=== PATIENT | female | born 1970 | race Caucasian/White ===

== ENCOUNTER 2018-06-06 18:28 | Observation (INO) | payer OTHER ==
[~2018-06-06] VITALS: Ht 162.6 cm; Wt 63.5 kg
[~2018-06-06 18:28] MED LIST: BISA5EC PO; CYCL10 PO; DICL25ER PO; DICLOFENAC; DOCU100 PO; HYDACE10B PO; HYDACE5 PO; HYDACE5325 PO; NAPR500 PO; PROM25 PO; PROM25S PR; RXOXYACE PO; SERT50 PO; VENL75
[2018-06-06 19:11] LABS: BASOPHILS ABSOLUTE AUTO 0.02 K/mm3 (0.00-0.23); BASOPHILS PERCENT AUTO 0 % (0-2); EOSINOPHILS ABSOLUTE AUTO 0.04 K/mm3 (0.00-0.68); EOSINOPHILS PERCENT AUTO 1 % (0-6); Hematocrit 40.9 % (33.0-51.0); Hemoglobin 14.1 g/dL (11.5-16.0); IMMATURE GRAN ABSOLUTE AUTO 0.01 K/mm3 (0.00-0.10); IMMATURE GRAN PERCENT AUTO 0 % (0-1); LYMPHOCYTES ABSOLUTE AUTO 0.94 K/mm3 (0.84-5.20); LYMPHOCYTES PERCENT AUTO 14 % (21-46); MONOCYTES ABSOLUTE AUTO 0.51 K/mm3 (0.16-1.47); MONOCYTES PERCENT AUTO 8 % (4-13); Mean Corpuscular HGB Conc 34.5 g/dL (31.5-36.5); Mean Corpuscular Volume 87 fL (80-100); NEUTROPHILS ABSOLUTE AUTO 5.01 K/mm3 (1.96-9.15); NEUTROPHILS PERCENT AUTO 77 % (41-73); Platelet Count 323 K/mm3 (150-400); RDW Coefficient Variation 12.9 % (11.7-14.2); RDW Standard Deviation 41.1 fL (35.1-46.3); White Blood Cell Count 6.53 K/mm3 (4.00-11.30)
[2018-06-06 19:29] LABS: Source, Urine Clean Catch
[2018-06-06 19:32] LABS: Bilirubin, Urine Neg (Neg); Blood, Urine 1+ (Neg); Glucose Qualitative, Urine Neg (Neg); Ketones, Urine 2+ (Neg); Leukocyte Esterase, Urine 1+ (Neg); Nitrite, Urine Neg (Neg); Protein, Urine 3+ (Neg); Urobilinogen, Urine 1+ (Normal)
[2018-06-06 19:38] LABS: Alanine Aminotransfer (ALT/SGP 46 U/L (12-78); Albumin, Blood 4.3 g/dL (3.4-5.0); Albumin/Globulin Ratio 1.2 (0.8-1.8); Alk Phos 79 U/L (50-136); Anion Gap 10 mmol/L (6-16); Aspartate Aminotrans (AST/SGOT 14 U/L (12-37); Bilirubin, Total 0.7 mg/dL (0.1-1.0); Blood Urea Nitrogen 16 mg/dL (8-24); Bun/Creatinine Ratio 27.2 (12.0-20.0); CO2, Blood 24 mmol/L (21-32); Calcium, Blood 9.2 mg/dL (8.5-10.1); Chloride, Blood 105 mmol/L (98-108); Creatinine, Blood 0.59 mg/dL (0.40-1.00); Ethanol (Alcohol), Blood, Med <3 mg/dL; Globulin, Blood 3.6 g/dL (2.2-4.0); Glomerular Filtration Rate >60 (60-); Glucose, Blood 109 mg/dL (70-99); Potassium, Blood 3.3 mmol/L (3.5-5.5); Salicylate <1.7 mg/dL (2.8-20.0); Sodium, Blood 139 mmol/L (136-145); Total Protein, Blood 7.9 g/dL (6.4-8.2)
[2018-06-06 19:46] LABS: Appearance, Urine Clear (Clear); Color, Urine Yellow (P-Yellow); U Amphetamine Screen DETECTED; U Barbituate Screen Not Detected; U Benzodiazapine Screen Not Detected; U Buprenorphine Screen Not Detected; U Cannabinoids Screen DETECTED; U Cocaine Screen Not Detected; U Methadone Screen Not Detected; U Methamphetamine Screen DETECTED; U Opiates Screen Not Detected; U Oxycodone Screen Not Detected; U Phencyclidine Screen Not Detected; U Propoxyphene Screen Not Detected
[2018-06-06 19:46] LABS: Acetaminophen, Random <2.0 ug/mL (10.0-30.0)
[2018-06-06 19:47] LABS: Bacteria Few /hpf; Mucus Light (0-Heavy); Squamous Epithelial Cells Few /hpf (Few)
[2018-06-06 19:48] LABS: Hyaline Casts 0-2 /lpf (0-2)
== END 2018-06-07 12:25 | disposition home or self-care (01) ==
LOC: ER 18:28 → EOR 18:29
PROVIDERS: Physician Assistant; ADMIT Emergency Medicine
DX: F15.959 Other stimulant use, unspecified with stimulant-induced psychotic disorder, unspecified (principal)
CPT/HCPCS: 80053; 81001; 81025; 84443; 85025; 87086; 99285; G0378; G0480

== ENCOUNTER 2018-10-25 15:09 | Emergency (ER) | payer OTHER ==
[~2018-10-25] VITALS: Ht 162.6 cm; Wt 67.6 kg
[2018-10-25 15:59] LABS: Source, Urine Clean Catch
[2018-10-25 16:01] LABS: BASOPHILS ABSOLUTE AUTO 0.01 K/mm3 (0.00-0.23); BASOPHILS PERCENT AUTO 0 % (0-2); EOSINOPHILS ABSOLUTE AUTO 0.13 K/mm3 (0.00-0.68); EOSINOPHILS PERCENT AUTO 2 % (0-6); Hematocrit 41.1 % (33.0-51.0); Hemoglobin 13.4 g/dL (11.5-16.0); IMMATURE GRAN ABSOLUTE AUTO 0.01 K/mm3 (0.00-0.10); IMMATURE GRAN PERCENT AUTO 0 % (0-1); LYMPHOCYTES ABSOLUTE AUTO 1.64 K/mm3 (0.84-5.20); LYMPHOCYTES PERCENT AUTO 31 % (21-46); MONOCYTES ABSOLUTE AUTO 0.44 K/mm3 (0.16-1.47); MONOCYTES PERCENT AUTO 8 % (4-13); Mean Corpuscular HGB 30.5 pg (26.0-34.0); Mean Corpuscular HGB Conc 32.6 g/dL (31.5-36.5); Mean Corpuscular Volume 93 fL (80-100); Mean Platelet Volume 9.5 fL (9.1-12.4); NEUTROPHILS ABSOLUTE AUTO 3.09 K/mm3 (1.96-9.15); NEUTROPHILS PERCENT AUTO 58 % (41-73); Platelet Count 304 K/mm3 (150-400); RDW Coefficient Variation 12.6 % (11.7-14.2); RDW Standard Deviation 43.9 fL (35.1-46.3); White Blood Cell Count 5.32 K/mm3 (4.00-11.30)
[2018-10-25 16:28] LABS: Alanine Aminotransfer (ALT/SGP 80 U/L (12-78); Albumin, Blood 3.6 g/dL (3.4-5.0); Albumin/Globulin Ratio 1.2 (0.8-1.8); Alk Phos 97 U/L (50-136); Anion Gap 2 mmol/L (6-16); Aspartate Aminotrans (AST/SGOT 33 U/L (12-37); Bilirubin, Total 0.3 mg/dL (0.1-1.0); Blood Urea Nitrogen 14 mg/dL (8-24); Bun/Creatinine Ratio 22.8 (12.0-20.0); CO2, Blood 30 mmol/L (21-32); Calcium, Blood 8.3 mg/dL (8.5-10.1); Chloride, Blood 110 mmol/L (98-108); Creatinine, Blood 0.61 mg/dL (0.40-1.00); Ethanol (Alcohol), Blood, Med <3 mg/dL; Globulin, Blood 3.1 g/dL (2.2-4.0); Glomerular Filtration Rate >60 (60-); Glucose, Blood 112 mg/dL (70-99); Potassium, Blood 3.8 mmol/L (3.5-5.5); Salicylate 2.6 mg/dL (2.8-20.0); Sodium, Blood 142 mmol/L (136-145); Total Protein, Blood 6.7 g/dL (6.4-8.2)
[2018-10-25 16:36] LABS: Acetaminophen, Random <2.0 ug/mL (10.0-30.0)
[2018-10-25 16:37] LABS: Bilirubin, Urine Neg (Neg); Blood, Urine 1+ (Neg); Glucose Qualitative, Urine Neg (Neg); Ketones, Urine Neg (Neg); Leukocyte Esterase, Urine 1+ (Neg); Nitrite, Urine Neg (Neg); Protein, Urine 1+ (Neg); Urobilinogen, Urine NORM (Normal)
[2018-10-25 16:49] LABS: Appearance, Urine Hazy (Clear); Color, Urine Yellow (P-Yellow)
[2018-10-25 16:53] LABS: Bacteria Few /hpf; Calcium Oxalate Crystals Few /hpf; Red Blood Cells, Urine 0-2 /hpf (0-2); Squamous Epithelial Cells Few /hpf (Few)
[2018-10-25 17:05] LABS: U Amphetamine Screen DETECTED; U Barbituate Screen Not Detected; U Benzodiazapine Screen Not Detected; U Buprenorphine Screen Not Detected; U Cannabinoids Screen DETECTED; U Cocaine Screen Not Detected; U Methadone Screen Not Detected; U Methamphetamine Screen Not Detected; U Opiates Screen Not Detected; U Oxycodone Screen Not Detected; U Phencyclidine Screen Not Detected; U Propoxyphene Screen Not Detected
== END 2018-10-26 02:09 | disposition home or self-care (01) ==
LOC: ER 15:09
PROVIDERS: Emergency Medicine
DX: R45.851 Suicidal ideations (principal); F17.210 Nicotine dependence, cigarettes, uncomplicated; Z88.8 Allergy status to other drugs, medicaments and biological substances
CPT/HCPCS: 36415; 80053; 81001; 81025; 84443; 85025; 87086; 99285; G0480

== ENCOUNTER → 2019-01-20 | Outpatient (CLI) | payer OTHER | END | disposition home or self-care (01) | LOC: LAB SHORT 17:19 → LAB EV 17:19 | DX: L08.9 Local infection of the skin and subcutaneous tissue, unspecified (principal) | CPT/HCPCS: 87070; 87075; 87077; 87147; 87186; 87205 ==

== ENCOUNTER 2020-01-08 20:38 | Emergency (ER) | payer SELFPAY ==
[~2020-01-08] VITALS: Ht 165.1 cm; Wt 83.3 kg
[2020-01-08] MEDS ORDERED: CEPH500 PO (22:54)
== END 2020-01-08 23:15 | disposition home or self-care (01) ==
LOC: ER 20:38
DX: L01.00 Impetigo, unspecified (principal); F17.210 Nicotine dependence, cigarettes, uncomplicated; Z87.442 Personal history of urinary calculi
CPT/HCPCS: 99283; A9270-GY

== ENCOUNTER 2020-11-06 17:27 | Inpatient (IN) | payer OTHER ==
[~2020-11-06] VITALS: Ht 172.7 cm; Wt 81.7 kg
[~2020-11-06 17:27] MED LIST changes: +CEPH500 PO
[2020-11-06 18:24] LABS: BASOPHILS ABSOLUTE AUTO 0.02 K/mm3 (0.00-0.23); BASOPHILS PERCENT AUTO 0 % (0-2); EOSINOPHILS ABSOLUTE AUTO 0.01 K/mm3 (0.00-0.68); EOSINOPHILS PERCENT AUTO 0 % (0-6); Hematocrit 39.2 % (33.0-51.0); Hemoglobin 13.6 g/dL (11.5-16.0); IMMATURE GRAN ABSOLUTE AUTO 0.09 K/mm3 (0.00-0.10); IMMATURE GRAN PERCENT AUTO 1 % (0-1); LYMPHOCYTES ABSOLUTE AUTO 0.57 K/mm3 (0.84-5.20); LYMPHOCYTES PERCENT AUTO 5 % (21-46); MONOCYTES ABSOLUTE AUTO 0.72 K/mm3 (0.16-1.47); MONOCYTES PERCENT AUTO 7 % (4-13); Mean Corpuscular HGB 29.9 pg (26.0-34.0); Mean Corpuscular HGB Conc 34.7 g/dL (31.5-36.5); Mean Corpuscular Volume 86 fL (80-100); Mean Platelet Volume 9.4 fL (9.1-12.4); NEUTROPHILS ABSOLUTE AUTO 9.44 K/mm3 (1.96-9.15); NEUTROPHILS PERCENT AUTO 87 % (41-73); Platelet Count 265 K/mm3 (150-400); RDW Coefficient Variation 13.1 % (11.7-14.2); RDW Standard Deviation 41.3 fL (35.1-46.3); Red Blood Cell Count 4.55 M/mm3 (3.80-5.20); White Blood Cell Count 10.85 K/mm3 (4.00-11.30)
[2020-11-06 18:34] LABS: Alanine Aminotransfer (ALT/SGP 179 U/L (12-78); Albumin, Blood 3.1 g/dL (3.4-5.0); Albumin/Globulin Ratio 0.8 (0.8-1.8); Alk Phos 150 U/L (50-136); Anion Gap 5 mmol/L (6-16); Aspartate Aminotrans (AST/SGOT 163 U/L (12-37); Bilirubin, Total 0.6 mg/dL (0.1-1.0); Blood Urea Nitrogen 8 mg/dL (8-24); CO2, Blood 26 mmol/L (21-32); Calcium, Blood 8.4 mg/dL (8.5-10.1); Chloride, Blood 99 mmol/L (98-108); Creatinine, Blood 0.61 mg/dL (0.40-1.00); Globulin, Blood 3.8 g/dL (2.2-4.0); Glomerular Filtration Rate >60 (60-); Glucose, Blood 111 mg/dL (70-99); Potassium, Blood 3.4 mmol/L (3.5-5.5); Sodium, Blood 130 mmol/L (136-145); Total Protein, Blood 6.9 g/dL (6.4-8.2)
[2020-11-06 19:03] LABS: Source, Urine Clean Catch
[2020-11-06 19:10] LABS: Appearance, Urine Cloudy (Clear); Bilirubin, Urine Neg (Neg); Blood, Urine 3+ (Neg); Color, Urine Yellow (P-Yellow); Glucose Qualitative, Urine Neg (Neg); Ketones, Urine Neg (Neg); Leukocyte Esterase, Urine 3+ (Neg); Nitrite, Urine Neg (Neg); Protein, Urine 2+ (Neg); Specific Gravity, Urine 1.015 (1.003-1.022); Urobilinogen, Urine NORM (Normal)
[2020-11-06 19:20] LABS: Bacteria Many /hpf; Red Blood Cells, Urine 0-2 /hpf (0-2); Squamous Epithelial Cells Many /hpf (Few)
[2020-11-06 22:10] LABS: SARS-Cov-2 (COVID-19) PCR, MMC NEGATIVE (NEGATIVE)
[2020-11-07 04:54] LABS: U Amphetamine Screen DETECTED; U Barbituate Screen Not Detected; U Benzodiazapine Screen Not Detected; U Cocaine Screen Not Detected; U Methadone Screen Not Detected; U Methamphetamine Screen DETECTED; U Opiates Screen Not Detected; U Phencyclidine Screen Not Detected
[2020-11-07 04:54] LABS: BASOPHILS ABSOLUTE AUTO 0.03 K/mm3 (0.00-0.23); BASOPHILS PERCENT AUTO 0 % (0-2); EOSINOPHILS PERCENT AUTO 0 % (0-6); Hematocrit 39.9 % (33.0-51.0); Hemoglobin 13.2 g/dL (11.5-16.0); IMMATURE GRAN ABSOLUTE AUTO 0.04 K/mm3 (0.00-0.10); IMMATURE GRAN PERCENT AUTO 1 % (0-1); LYMPHOCYTES ABSOLUTE AUTO 0.55 K/mm3 (0.84-5.20); LYMPHOCYTES PERCENT AUTO 7 % (21-46); MONOCYTES ABSOLUTE AUTO 0.49 K/mm3 (0.16-1.47); MONOCYTES PERCENT AUTO 6 % (4-13); Mean Corpuscular HGB Conc 33.1 g/dL (31.5-36.5); Mean Platelet Volume 9.3 fL (9.1-12.4); NEUTROPHILS PERCENT AUTO 87 % (41-73); Platelet Count 221 K/mm3 (150-400); RDW Coefficient Variation 13.3 % (11.7-14.2); RDW Standard Deviation 45.3 fL (35.1-46.3); White Blood Cell Count 8.31 K/mm3 (4.00-11.30)
[2020-11-07 04:55] LABS: U Buprenorphine Screen Not Detected; U Cannabinoids Screen DETECTED; U Oxycodone Screen Not Detected; U Propoxyphene Screen Not Detected
[2020-11-07 05:07] LABS: Mean Corpuscular Volume 91 fL (80-100)
[2020-11-07 05:29] LABS: Alanine Aminotransfer (ALT/SGP 258 U/L (12-78); Albumin, Blood 2.7 g/dL (3.4-5.0); Albumin/Globulin Ratio 0.7 (0.8-1.8); Alk Phos 161 U/L (50-136); Anion Gap 6 mmol/L (6-16); Aspartate Aminotrans (AST/SGOT 201 U/L (12-37); Bilirubin, Total 0.6 mg/dL (0.1-1.0); Blood Urea Nitrogen 10 mg/dL (8-24); Bun/Creatinine Ratio 13.4 (12.0-20.0); CO2, Blood 26 mmol/L (21-32); Chloride, Blood 103 mmol/L (98-108); Creatinine, Blood 0.75 mg/dL (0.40-1.00); Globulin, Blood 3.8 g/dL (2.2-4.0); Glomerular Filtration Rate >60 (60-); Glucose, Blood 106 mg/dL (70-99); Potassium, Blood 3.6 mmol/L (3.5-5.5); Sodium, Blood 135 mmol/L (136-145); Total Protein, Blood 6.5 g/dL (6.4-8.2)
--- NOTE | 2020-11-07 07:44 | NUR ---
SHIFT SUMMARY RECIEVED REPORT FROM MARQUITA RAO, ED @ 0245. ARRIVED TO MEDICAL UNIT @ 0015 VIA WHEELCHAIR. ORIENTED TO CALL LIGHT AND ROOM. A/O, ABLE TO MAKE NEEDS KNOWN. COOPERATIVE WITH CARE. CALLS AND ANSWERS QUESTIONS APPROPRIATELY. C/O PAIN/DISCOMFORT TO R FLANK; MEDICATED PER EMAR. IV FLUIDS INFUSING WITHOUT COMPLICATIONS. APPEARED TO REST MUCH OF THE NIGHT. REMAINED MOSTLY FEBRILE OVERNIGHT; MEDICATED PER EMAR. NO OTHER ACUTE CHANGES NOTED. TELE RUNNING SR IN 90s. BED REMAINED IN LOWEST POSITION. CALL LIGHT AND BELONGINGS WITHIN REACH. CONTINUE WITH CURRENT PLAN OF CARE. REPORT GIVEN TO ONCSONNY RAO.
--- NOTE | 2020-11-08 06:14 | NUR ---
SHIFT SUMMARY A/O, ABLE TO MAKE NEEDS KNOWN. INDIFFERENT WITH CARE. STATES WANTS TO LEAVE AMA MULTIPLE TIMES. IRRITABLE WITH STAFF. MULTIPLE REQUESTS FOR PAIN MEDICATION. REMAINS FEBRILE; MULTIPLE ATTEMPTS TO KEEP SHEET ONLY AND EXPLAINED NEED FOR HER TO NOT UTILIZE BLANKET. REFUSES TO KEEP BLANKET OFF. MULTIPLE ATTEMPTS AT ORAL TEMPERATURES; GUZZLES WATER PRIOR TO ATTEMPT. REMAINS ON IV FLUIDS T/O SHIFT. ABX INFUSED WITHOUT COMPLICATIONS. OFFSET CHANGED R/T PEELING BACK. TELE REMAINED SINUS T/O NIGHT IN 80s.NO OTHER ACUTE CHANGES NOTED. BED REMAINS IN LOWEST POSITION. CALL LIGHT AND BELONGINGS WITHIN REACH. CONTINUE WITH CURRENT PLAN OF CARE. REPORT TO ONCOMING RN.
[2020-11-08 11:13] LABS: Vancomycin, Trough 9.6 ug/mL (5.0-10.0)
--- NOTE | 2020-11-08 17:31 | NUR ---
PT HAD MRI THIS SHIFT. ATIVAN GIVEN PRIOR . PT HAS NOT THREATENED TO LEAVE THIS SHIFT. HAS SLEPT AND BEEN PLEASANT . IV ABX GIVEN PER ORDER. PT IS ALERT AND ORIENTED AND ABLE TO EXPRESS ANY CONCERNS. CALL LIGHT WITHIN REACH, [facility]
[2020-11-09 05:00] LABS: Hematocrit 33.6 % (33.0-51.0); Hemoglobin 11.4 g/dL (11.5-16.0); Mean Corpuscular HGB 30.5 pg (26.0-34.0); Mean Corpuscular HGB Conc 33.9 g/dL (31.5-36.5); Mean Corpuscular Volume 90 fL (80-100); Mean Platelet Volume 10.6 fL (9.1-12.4); Platelet Count 173 K/mm3 (150-400); RDW Coefficient Variation 13.2 % (11.7-14.2); RDW Standard Deviation 43.7 fL (35.1-46.3); Red Blood Cell Count 3.74 M/mm3 (3.80-5.20); White Blood Cell Count 6.36 K/mm3 (4.00-11.30)
[2020-11-09 05:30] LABS: Anion Gap 7 mmol/L (6-16); Blood Urea Nitrogen 5 mg/dL (8-24); Bun/Creatinine Ratio 8.6 (12.0-20.0); CO2, Blood 25 mmol/L (21-32); Calcium, Blood 8.1 mg/dL (8.5-10.1); Chloride, Blood 105 mmol/L (98-108); Creatinine, Blood 0.58 mg/dL (0.40-1.00); Glomerular Filtration Rate >60 (60-); Glucose, Blood 139 mg/dL (70-99); Potassium, Blood 3.2 mmol/L (3.5-5.5); Sodium, Blood 137 mmol/L (136-145)
--- NOTE | 2020-11-09 06:34 | NUR ---
SHIFT SUMMARY A/O, ABLE TO MAKE NEEDS KNOWN. COOPERATIVE WITH CARE. CALLS AND ANSWERS QUESTIONS APPROPRIATELY. C/O PAIN/DISCOMFORT TO R FLANK/ABDOMEN; MEDICATED PER EMAR. RECIEVED IV ABX WITHOUT COMPLICATION. SHOWER PRIOR TO SHIFT CHANGE. MOOD MUCH BETTER WITH STAFF THIS SHIFT. FEVERS MUCH MORE MANAGED. VSS. APPEARED TO REST MUCH OF THE NIGHT. TELE SR IN THE 80s T/O SHIFT. NO OTHER ACUTE CHANGES NOTED OVERNIGHT. BED REMAINS IN LOWEST POSITION. CALL LIGHT AND BELONGINGS WITHIN REACH. CONTINUE WITH CURRENT PLAN OF CARE. REPORT TO ONCOMING RN.
[2020-11-09 11:28] LABS: Vancomycin, Trough 14.2 ug/mL (5.0-10.0)
--- NOTE | 2020-11-09 11:46 | NUR ---
Echocardiogram using 0.50ml of Definity contrast performed.
--- NOTE | 2020-11-09 17:17 | NUR ---
SUMMARY PT RESTING IN BED TALKING ON HER PHONE, PT HAS BEEN COOPERATIVE WITH CARE, INDEPENDENT IN THE ROOM, MED PER EMAR FOR PAIN, ID CONSULT DONE AND ANTIBIOTICS CHANGED, VSS, NO ACUTE CHANGES, WILL CONT TO MONITOR
--- NOTE | 2020-11-10 06:33 | NUR ---
SHIFT SUMMARY: AOX3, INDEPENDENT. WANTED TO GO SMOKE/LEAVE THE FLOOR LAST NIGHT, INFORMED HER THERE WAS NO LEAVING THE FLOOR DUE TO HIGH NUMBERS OF COVID CASES. SHE EVEN MENTIONED SHE CAN SMOKE IN THE BATHROOM, INFORMED NO SMOKING IN ROOMS. HER VAPE PEN IS LOCKED IN THE MED DRAW. SHE DID PACE IN THE ROOM FOR SHORT PERIODS OF TIME C/O PAIN IN HER RIGHT SIDE RIB AREA TO RIGHT FLANK. TORDOL AND TYLENOL AROUND THE CLOCK PER HER REQUEST. VSS NO FEVERS. NO ACUTE CHANGES. CALL LIGHTS IN REACH.
[2020-11-10 07:11] LABS: HBSAG SCREEN Negative (Negative); HEP B CORE AB, TOT Negative (Negative); HEP C VIRUS AB <0.1 (0.0-0.9); HIV SCREEN 4TH GENERATION WRFX Non Reactive (Non Reactive)
[2020-11-10 12:03] LABS: BASOPHILS ABSOLUTE AUTO 0.01 K/mm3 (0.00-0.23); BASOPHILS PERCENT AUTO 0 % (0-2); EOSINOPHILS ABSOLUTE AUTO 0.04 K/mm3 (0.00-0.68); EOSINOPHILS PERCENT AUTO 1 % (0-6); Hematocrit 32.2 % (33.0-51.0); Hemoglobin 10.9 g/dL (11.5-16.0); IMMATURE GRAN ABSOLUTE AUTO 0.04 K/mm3 (0.00-0.10); IMMATURE GRAN PERCENT AUTO 1 % (0-1); LYMPHOCYTES ABSOLUTE AUTO 0.84 K/mm3 (0.84-5.20); LYMPHOCYTES PERCENT AUTO 12 % (21-46); MONOCYTES ABSOLUTE AUTO 0.71 K/mm3 (0.16-1.47); MONOCYTES PERCENT AUTO 10 % (4-13); Mean Corpuscular HGB 29.9 pg (26.0-34.0); Mean Corpuscular HGB Conc 33.9 g/dL (31.5-36.5); Mean Corpuscular Volume 89 fL (80-100); Mean Platelet Volume 11.2 fL (9.1-12.4); NEUTROPHILS ABSOLUTE AUTO 5.24 K/mm3 (1.96-9.15); NEUTROPHILS PERCENT AUTO 76 % (41-73); Platelet Count 189 K/mm3 (150-400); RDW Coefficient Variation 13.4 % (11.7-14.2); Red Blood Cell Count 3.64 M/mm3 (3.80-5.20); White Blood Cell Count 6.88 K/mm3 (4.00-11.30)
[2020-11-10 12:09] LABS: Anion Gap 5 mmol/L (6-16); Blood Urea Nitrogen 9 mg/dL (8-24); Bun/Creatinine Ratio 15.7 (12.0-20.0); CO2, Blood 28 mmol/L (21-32); Calcium, Blood 8.2 mg/dL (8.5-10.1); Chloride, Blood 108 mmol/L (98-108); Creatinine, Blood 0.57 mg/dL (0.40-1.00); Glomerular Filtration Rate >60 (60-); Glucose, Blood 100 mg/dL (70-99); Magnesium, Blood 2.2 mg/dL (1.6-2.4); Potassium, Blood 3.1 mmol/L (3.5-5.5); Sodium, Blood 141 mmol/L (136-145); Troponin I <0.015 ng/mL (0.000-0.040)
--- NOTE | 2020-11-10 18:12 | NUR ---
SUMMARY PT SITTING UP IN BED, PT HAS BEEN INDEPENDENT IN THE ROOM, MED PER EMAR FOR PAIN, PT DENIES ANY NAUSEA OR SOB, PT HAS BEEN COOPERATIVE WITH CARE, CARDIOLOGY CONSULTED FOR A JOSSELYN TOMORROW, PT TO BE NPO AFTER MIDNIGHT, VSS, WILL CONT TO MONITOR
--- NOTE | 2020-11-11 04:20 | NUR ---
SHIFT SUMMARY: AOX3, COOPERATIVE AT START OF SHIFT. THE NIGHT WENT ON SHE STARTED TAKING ABOUT WORMS MOVING IN HER BRAIN, DOWN HER FACE AND SHE HAS HAD TO PICK THEM OUT BEFORE. STATES SHE STILL FEELS THEM MOVING IN HER BODY. STATES SHE EVEN SAW LITTLE BODIES IN HER POOP. THEN SHE STARTED TO SEE PEOPLE THAT WAS NOT THERE. C/O PAIN IN HER RIB CAGE TO RIGHT SIDE OF BACK, STATES IT IS HER ALIEN TRYING TO GET OUT. SHE SLEPT FOR A SHORT BIT BUT WHEN SHE WOKE UP THIS MORNING SHE STARTED MOANING REALLY LOUD STATING SHE IS HURTING ALOT, PACING THE ROOM. ONCE PAIN MEDS WERE GIVEN SHE LAID BACK DOWN IN BED AND WAS QUITE. NOT SURE IF IT IS PAIN OR BEHAVIOR. VS ALL WNL, MILD TEMP OF 99. WILL REPORT TO DAYSHIFT.
--- NOTE | 2020-11-11 06:12 | NUR ---
PATIENT HAS REMOVED HER TELE SEVERAL TIMES TODAY, REFUSES TO PUT IT BACK ON. INFORMED TELE OF HER REFUSAL. WILL SEND TELE BACK.
[2020-11-11 10:00] LABS: Hematocrit 31.6 % (33.0-51.0); Hemoglobin 10.5 g/dL (11.5-16.0); Mean Corpuscular HGB 29.9 pg (26.0-34.0); Mean Corpuscular HGB Conc 33.2 g/dL (31.5-36.5); Mean Corpuscular Volume 90 fL (80-100); Mean Platelet Volume 10.2 fL (9.1-12.4); Platelet Count 238 K/mm3 (150-400); RDW Coefficient Variation 13.6 % (11.7-14.2); RDW Standard Deviation 45.1 fL (35.1-46.3); Red Blood Cell Count 3.51 M/mm3 (3.80-5.20); White Blood Cell Count 6.01 K/mm3 (4.00-11.30)
[2020-11-11 10:21] LABS: BASOPHILS ABSOLUTE MAN 0.12 K/mm3 (0.00-0.23); BASOPHILS PERCENT MAN 2 % (0-2); EOSINOPHILS PERCENT MAN 0 % (0-6); LYMPHOCYTES ABSOLUTE MAN 1.44 K/mm3 (0.84-5.20); LYMPHOCYTES PERCENT MAN 24 % (21-46); MONOCYTES ABSOLUTE MAN 0.66 K/mm3 (0.16-1.47); MONOCYTES PERCENT MAN 11 % (4-13); NEUTROPHILS ABSOLUTE MAN 3.78 K/mm3 (1.96-9.15); SEG NEUTROPHILS PERCENT MAN 63 % (41-73); TOTAL CELLS COUNTED 100
[2020-11-11 10:43] LABS: Anion Gap 2 mmol/L (6-16); Blood Urea Nitrogen 9 mg/dL (8-24); Bun/Creatinine Ratio 14.2 (12.0-20.0); CO2, Blood 31 mmol/L (21-32); Calcium, Blood 8.5 mg/dL (8.5-10.1); Chloride, Blood 107 mmol/L (98-108); Creatinine, Blood 0.64 mg/dL (0.40-1.00); Glomerular Filtration Rate >60 (60-); Glucose, Blood 85 mg/dL (70-99); Potassium, Blood 3.6 mmol/L (3.5-5.5); Sodium, Blood 140 mmol/L (136-145)
--- NOTE | 2020-11-11 11:58 | NUR ---
BEHAVIORAL NOTE... 0745-UPON MORNING BEDSIDE REPORT WHEN ASKED IF THE PATIENT NEEDED ANYTHING, THE PT STATES "AT THIS POINT I NEED A GUN". 0830-PT REFUSED JOSSELYN STATING SHE WOULD NOT DO ANYTHING WITHOUT HER . STATES SHE REFUSES NPO AND CANT RECALL IF SHE CONSUMED FOOD. 0900-PT IN RESTROOM YELLING THROUGH DOOR "LEAVE ME THE FUCK ALONE" 1000-PT ROCKING BACK AND FORTH IN BED WITH COVERS OVER HER HEAD. 1100-PT TELLS THIS FIELD RING ASSEMBLER TO "START ANOTHER IV IDIOT" SINCE HER LAC IS POSITIONAL. WHEN CONFIRMING HER REQUEST TO PLACE ANOTHER IV, THE PT STATES "NOT NOW BITCH, I WILL PUNCH WHO EVER DOES IT". AND [place] NOTIFIED.
--- NOTE | 2020-11-11 18:25 | NUR ---
SHIFT.... BY END OF SHIFT PT MORE RECEPTIVE TO MY CARE. WAS ABLE TO DEL PAIN MEDS AND IV ABT WITHOUT ISSUE. PT REFUSED MOST CARE THIS SHIFT ALONG WITH LABS. PT REMAINS ALERT AND ORIENTED X4, IND IN ROOM, C/O PAIN T/O BACK AND NAUSEA. REFUSED NAUSEA MEDICATIONS. STAFF WILL CONT TO MONITOR AND OFFER CARE.
--- NOTE | 2020-11-12 06:13 | NUR ---
SHIFT SUMMARY: AOX3, MORE COOPERATIVE THIS SHIFT. STILL SPEAKING OF DELUSIONAL THINGS SUCH SHE IS THE TARANGO CHILD AND 5TH ELEMENT RAISED BY SARAH WHO DID EXPERMENTS ON HER A CHILD. WOULD BENIFIT FROM A PSYCH CONSULT. PAIN HAS AVERAGE AROUN 7/10 MOST OF THE NIGHT. SHE HAS ONLY HAD 1 BEHAVIORAL OUTBURST THIS AM FOR PAIN MEDS STATING THE SIDE TO BACK WAS HURTING. ONCE MEDS GIVEN SHE WAS CALM. VS WNL, PLANS ON GOING HOME TODAY. CALL LIGHT IN REACH.
--- NOTE | 2020-11-12 18:09 | NUR ---
NO ACUTE EVENTS FIRST HALF OF SHIFT, VSS. PT COMPLAINED OF BACK AND SIDE PAIN, MEDICATED PER EMAR. IN THE AFTERNOON PT BECAME INCREASINGLY AGITATED, STATING THAT "EVERYONE WORKING HERE DOESN'T KNOW ANYTHING". PT COMPLAINED OF MIGRAINE HEADACHE, DR. MATHEWS NOTIFIED AND ORDERS FOR IMITREX AND GENECED GIVEN. PT STATED THAT HER SONS WERE HERE TO VISIT AND THAT SHE DIDN'T CARE ABOUT HOSPITAL POLICY OF ONE VISITOR PER DAY, THAT BOTH OF THEM NEEDED TO COME UP AND NEEDED TO BRING HER SOME POSSESSIONS OF HERS TO HER . THIS RN AGAIN CONFIRMED THAT THIS WOULD NOT BE POSSIBLE GIVEN HOSPITAL POLICY, CHARGE NURSE LUAN RAO ALSO CAME TO BEDSIDE TO DISCUSS WITH PATIENT. PT TOLD THIS RN AND RICHARD HUSTON THAT SHE WS GOING TO TELL HER SONS TO SNEAK IN THROUGH [facility] TO BRING HER HER THINGS. LUAN RAO CALLED TO ALERT SECURITY OF SITUATON. AT THIS POINT PATIENT WAS STATING THAT SHE WAS GOING TO LEAVE, THIS RN ADVISED PATIENT THAT SHE WOULD BE LEAVING AGAINST MEDICAL ADVICE, EXPLAINED RISK OF FURTHER ILLNESS AND POSIBILITY OF IF LEAVING BEFORE TREATMENT WAS COMPLETED, PT STATED SHE DIDN'T CARE AND WANTED TO LEAVE. THIS RN WAS ABLE TO REMOVE IV PATIENT WAS WALKING DOWN HALLWAY.
== END 2020-11-12 16:20 | disposition left against medical advice (07) | DRG 872 ==
LOC: ER 17:27 → MEDS 17:28 → ER 23:00 → MEDS 11-07 00:07
PROVIDERS: Internal Medicine; Internal Medicine Cardiovascular Disease; Internal Medicine Infectious Disease; Pharmacist; Physician Assistant; ADMIT Internal Medicine
DX: A41.01 Sepsis due to Methicillin susceptible Staphylococcus aureus (principal); I38 Endocarditis, valve unspecified; E87.6 Hypokalemia; F15.10 Other stimulant abuse, uncomplicated; Z20.822 Contact with and (suspected) exposure to COVID-19; Z87.442 Personal history of urinary calculi; J45.909 Unspecified asthma, uncomplicated; F17.210 Nicotine dependence, cigarettes, uncomplicated; Z98.890 Other specified postprocedural states; E86.0 Dehydration; Z79.899 Other long term (current) drug therapy
CPT/HCPCS: 36415; 71045; 72158; 74176; 80048; 80053; 80202; 81001; 81025; 83605; 83735; 84132; 84484; 85025; 85027; 85651; 86141; 86317; 86704; 86708; 86803; 87040; 87077; 87086; 87147; 87186; 87340; 87389; 93005; 93010; 93306; 96365; 96366; 96367; 96375; 99285-25; A9270; A9579; G0378; J0690; J0696; J1885; J2060; J2405; J3010; J3370; J3480; J7030; J7050; U0004

== ENCOUNTER 2020-11-23 17:56 | Inpatient (IN) | payer OTHER ==
[~2020-11-23] VITALS: Ht 170.2 cm; Wt 75.3 kg
[2020-11-23 19:09] LABS: BASOPHILS ABSOLUTE AUTO 0.03 K/mm3 (0.00-0.23); BASOPHILS PERCENT AUTO 0 % (0-2); EOSINOPHILS ABSOLUTE AUTO 0.04 K/mm3 (0.00-0.68); EOSINOPHILS PERCENT AUTO 0 % (0-6); Hematocrit 32.9 % (33.0-51.0); IMMATURE GRAN ABSOLUTE AUTO 0.07 K/mm3 (0.00-0.10); IMMATURE GRAN PERCENT AUTO 1 % (0-1); LYMPHOCYTES ABSOLUTE AUTO 1.12 K/mm3 (0.84-5.20); LYMPHOCYTES PERCENT AUTO 8 % (21-46); MONOCYTES PERCENT AUTO 9 % (4-13); Mean Corpuscular HGB 29.8 pg (26.0-34.0); Mean Corpuscular HGB Conc 33.4 g/dL (31.5-36.5); Mean Corpuscular Volume 89 fL (80-100); Mean Platelet Volume 8.9 fL (9.1-12.4); NEUTROPHILS ABSOLUTE AUTO 12.25 K/mm3 (1.96-9.15); NEUTROPHILS PERCENT AUTO 82 % (41-73); Platelet Count 476 K/mm3 (150-400); RDW Standard Deviation 42.4 fL (35.1-46.3); Red Blood Cell Count 3.69 M/mm3 (3.80-5.20); White Blood Cell Count 14.91 K/mm3 (4.00-11.30)
[2020-11-23 19:31] LABS: Alanine Aminotransfer (ALT/SGP 35 U/L (12-78); Albumin, Blood 2.6 g/dL (3.4-5.0); Albumin/Globulin Ratio 0.5 (0.8-1.8); Alk Phos 260 U/L (50-136); Anion Gap 8 mmol/L (6-16); Aspartate Aminotrans (AST/SGOT 26 U/L (12-37); Blood Urea Nitrogen 9 mg/dL (8-24); Bun/Creatinine Ratio 16.1 (12.0-20.0); CO2, Blood 29 mmol/L (21-32); Calcium, Blood 8.9 mg/dL (8.5-10.1); Chloride, Blood 96 mmol/L (98-108); Creatinine, Blood 0.56 mg/dL (0.40-1.00); Globulin, Blood 5.1 g/dL (2.2-4.0); Glomerular Filtration Rate >60 (60-); Glucose, Blood 97 mg/dL (70-99); Potassium, Blood 2.9 mmol/L (3.5-5.5); Sodium, Blood 133 mmol/L (136-145); Total Protein, Blood 7.7 g/dL (6.4-8.2)
[2020-11-23 20:00] LABS: Beta HCG, Quantitative, Serum 2 mIU/mL (0-3); Ethanol (Alcohol), Blood, Med <3 mg/dL
[2020-11-23 20:21] LABS: Source, Urine Catheter
[2020-11-23 20:24] LABS: Bilirubin, Urine Neg (Neg); Blood, Urine 3+ (Neg); Glucose Qualitative, Urine Neg (Neg); Ketones, Urine 2+ (Neg); Leukocyte Esterase, Urine 3+ (Neg); Nitrite, Urine Neg (Neg); Protein, Urine 2+ (Neg); Specific Gravity, Urine 1.015 (1.003-1.022); Urobilinogen, Urine 2+ (Normal)
[2020-11-23 20:36] LABS: Appearance, Urine Hazy (Clear); Color, Urine Amber (P-Yellow); White Blood Cells, Urine 25-50 /hpf (0-5)
[2020-11-23 20:37] LABS: Bacteria Many /hpf; Red Blood Cells, Urine 0-2 /hpf (0-2); Squamous Epithelial Cells Mod /hpf (Few)
[2020-11-23 20:39] LABS: U Amphetamine Screen DETECTED; U Barbituate Screen Not Detected; U Benzodiazapine Screen Not Detected; U Buprenorphine Screen Not Detected; U Cannabinoids Screen DETECTED; U Cocaine Screen Not Detected; U Methadone Screen Not Detected; U Methamphetamine Screen DETECTED; U Opiates Screen Not Detected; U Oxycodone Screen Not Detected; U Phencyclidine Screen Not Detected; U Propoxyphene Screen Not Detected
[2020-11-23 22:00] LABS: SARS-Cov-2 (COVID-19) PCR, MMC NEGATIVE (NEGATIVE)
[2020-11-23 22:36] LABS: C-REACTIVE PROTEIN, EXT RANGE >19.000 mg/dL (0.000-0.300)
[2020-11-24 05:24] LABS: BASOPHILS ABSOLUTE AUTO 0.03 K/mm3 (0.00-0.23); BASOPHILS PERCENT AUTO 0 % (0-2); EOSINOPHILS ABSOLUTE AUTO 0.09 K/mm3 (0.00-0.68); EOSINOPHILS PERCENT AUTO 1 % (0-6); Hematocrit 30.5 % (33.0-51.0); Hemoglobin 10.1 g/dL (11.5-16.0); IMMATURE GRAN ABSOLUTE AUTO 0.03 K/mm3 (0.00-0.10); IMMATURE GRAN PERCENT AUTO 0 % (0-1); LYMPHOCYTES ABSOLUTE AUTO 0.96 K/mm3 (0.84-5.20); LYMPHOCYTES PERCENT AUTO 10 % (21-46); MONOCYTES ABSOLUTE AUTO 0.99 K/mm3 (0.16-1.47); MONOCYTES PERCENT AUTO 10 % (4-13); Mean Corpuscular HGB 29.7 pg (26.0-34.0); Mean Corpuscular HGB Conc 33.1 g/dL (31.5-36.5); Mean Corpuscular Volume 90 fL (80-100); Mean Platelet Volume 9.3 fL (9.1-12.4); NEUTROPHILS ABSOLUTE AUTO 7.47 K/mm3 (1.96-9.15); NEUTROPHILS PERCENT AUTO 78 % (41-73); Platelet Count 404 K/mm3 (150-400); RDW Coefficient Variation 13.1 % (11.7-14.2); RDW Standard Deviation 42.9 fL (35.1-46.3); White Blood Cell Count 9.57 K/mm3 (4.00-11.30)
[2020-11-24 05:57] LABS: Alanine Aminotransfer (ALT/SGP 44 U/L (12-78); Albumin/Globulin Ratio 0.5 (0.8-1.8); Alk Phos 244 U/L (50-136); Anion Gap 4 mmol/L (6-16); Aspartate Aminotrans (AST/SGOT 40 U/L (12-37); Bilirubin, Total 0.5 mg/dL (0.1-1.0); Blood Urea Nitrogen 10 mg/dL (8-24); Bun/Creatinine Ratio 18.2 (12.0-20.0); CO2, Blood 27 mmol/L (21-32); Calcium, Blood 8.3 mg/dL (8.5-10.1); Chloride, Blood 107 mmol/L (98-108); Creatinine, Blood 0.55 mg/dL (0.40-1.00); Globulin, Blood 4.3 g/dL (2.2-4.0); Glomerular Filtration Rate >60 (60-); Glucose, Blood 101 mg/dL (70-99); Magnesium, Blood 1.9 mg/dL (1.6-2.4); Potassium, Blood 4.4 mmol/L (3.5-5.5); Sodium, Blood 138 mmol/L (136-145); Total Protein, Blood 6.3 g/dL (6.4-8.2)
--- NOTE | 2020-11-24 06:53 | NUR ---
SHIFT SUMMARY- PT. NEW ADMIT FROM ED. MEDICATED PER PAIN WITH GOOD RELIEF. SLEPT T/O THE NIGHT. WILL CONT TO MONITOR.
--- NOTE | 2020-11-24 14:00 | NUR ---
ATIVAN X NOW MRI scheduled to be done and patient states she's claustrophobic. Requesting something for anxiety. Received T.O. for one time dose 1 mg ativan to be given prior to MRI. Orders updated.
--- NOTE | 2020-11-24 17:42 | NUR ---
PT RESTED IN BED MOST OF DAY. VERY PAINFULL AND MEDICATED T/O DAY ON SCHED W/ C/O BREAKTHROUGH PAIN. DID ADUST MEDICATIONS AND TO ADDRESS. PT DID HAVE MRI DONE TODAY, RESULTS PENDING. POSITIVE BC RESULTS FOR GRAM+ COCCI IN CLUSTERS RECIEVED TODAY AND REPORTED TO DR. MATHEWS, NO NEW ABX ORDERS AT THIS TIME. PT FINISHED NS+ 20K INFUSION AND IV TYSON IS SL, FLUSHES WELL. PT HAS BEEN UP IND IN THE ROOM TO BATHROOM DURING THE DAY. NO OTHER CHANGES THIS SHIFT TO REPORT
--- NOTE | 2020-11-25 07:06 | NUR ---
SHIFT SUMMARY PT IS A 50 Y/O FEMALE, ADMITTED FOR SEPSIS. SHE IS A&O X 3, WITH EPISODES OF VISUAL HALLUCINATIONS. SBA TO THE BSC. PT HAD EPISODE OF HALLUCINATIONS AND ANXIETY AND WAS MEDICATED WITH PRN ATIVAN. PT MEDICATED FOR BACK PAIN WITH PRN OXYCODONE AND TORADOL AND C/O PAIN WHENEVER SHE WOKE UP. PT SLEPT WELL THROUGH MOST OF THE NIGHT. TEMP WAS ELEVATED AT 102.8, DOWN TO 100.7 AFTER PO TYLENOL. ALL OTHER VITAL SIGNS STABLE. NO ACUTE CHANGES IN PT CONDITION NOTED DURING THE NIGHT. WILL CONTINUE TO MONITOR AND TREAT PER EMAR UNTIL HAND OFF TO DAY SHIFT RN.
[2020-11-25 15:04] LABS: Anion Gap 7 mmol/L (6-16); Blood Urea Nitrogen 6 mg/dL (8-24); Bun/Creatinine Ratio 11.9 (12.0-20.0); CO2, Blood 27 mmol/L (21-32); Calcium, Blood 7.9 mg/dL (8.5-10.1); Chloride, Blood 103 mmol/L (98-108); Creatinine, Blood 0.51 mg/dL (0.40-1.00); Glomerular Filtration Rate >60 (60-); Glucose, Blood 104 mg/dL (70-99); Potassium, Blood 3.4 mmol/L (3.5-5.5); Sodium, Blood 137 mmol/L (136-145)
[2020-11-25 15:12] LABS: BASOPHILS ABSOLUTE AUTO 0.02 K/mm3 (0.00-0.23); BASOPHILS PERCENT AUTO 0 % (0-2); EOSINOPHILS ABSOLUTE AUTO 0.28 K/mm3 (0.00-0.68); EOSINOPHILS PERCENT AUTO 3 % (0-6); Hematocrit 33.4 % (33.0-51.0); Hemoglobin 11.1 g/dL (11.5-16.0); IMMATURE GRAN ABSOLUTE AUTO 0.03 K/mm3 (0.00-0.10); IMMATURE GRAN PERCENT AUTO 0 % (0-1); LYMPHOCYTES ABSOLUTE AUTO 1.05 K/mm3 (0.84-5.20); LYMPHOCYTES PERCENT AUTO 13 % (21-46); MONOCYTES ABSOLUTE AUTO 1.18 K/mm3 (0.16-1.47); MONOCYTES PERCENT AUTO 14 % (4-13); Mean Corpuscular HGB 29.3 pg (26.0-34.0); Mean Corpuscular HGB Conc 33.2 g/dL (31.5-36.5); Mean Corpuscular Volume 88 fL (80-100); Mean Platelet Volume 8.8 fL (9.1-12.4); NEUTROPHILS ABSOLUTE AUTO 5.79 K/mm3 (1.96-9.15); NEUTROPHILS PERCENT AUTO 69 % (41-73); Platelet Count 416 K/mm3 (150-400); RDW Coefficient Variation 13.1 % (11.7-14.2); RDW Standard Deviation 42.3 fL (35.1-46.3); Red Blood Cell Count 3.79 M/mm3 (3.80-5.20); White Blood Cell Count 8.35 K/mm3 (4.00-11.30)
--- NOTE | 2020-11-25 19:05 | NUR ---
PT HAS RESTED IN BED MOST OF DAY, DOES C/O 01/10 BACK PAIN, PT HAS BEEN MEDICATED PER JUN WITH ADEQUATE RELIEF. PT DID SPIKE TEMP TODAY AND TYELENOL WAS GIVEN. PT HAS CONSULT PENDING WITH DR. RAMIREZ FOR FURTHER MGMT OF SEPSIS. NO OTHER CHANGES TODAY.
--- NOTE | 2020-11-26 07:41 | NUR ---
SHIFT SUMMARY JEN REQUESTED PAIN MEDS PRN WHEN THEY WERE DUE LAST NIGHT, DUE TO CHRONIC BACK PAIN. PT MADE STATEMENTS LIKE, "I WANT TO TAKE A SHOWER BEFORE THE ZOMBIES INVADE" AND THAT SHE FELT "SOMETHING INSIDE ME, CAUSING ME PAIN, WANTING TO GET OUT, LIKE AN ALIEN." NO ACUTE CHANGES. PT IS INDEPENDENT IN ROOM. ROOM AIR. IV IN LEFT UPPER ARM.
--- NOTE | 2020-11-26 20:09 | NUR ---
CALL RECEIVED FROM LAB REGARDING CRITICAL LAB RESULTS, RN CONTACTED DR. SLADE REGARDING LAB RESULTS. PATIENT IS CURRENTLY ON CEFAZOLIN, NO ORDERS RECEIVED.
--- NOTE | 2020-11-26 21:12 | NUR ---
PATIENT HAS 2 ORDERS FOR SENNOKOT 8.6MG. ONE ORDER STATES BID 0900/2100 SECOND ORDER STATES 2100 TWO TABS. PATIENT GIVEN 1 TAB AND REFUSED THE SECOND TAB. NOTED IN EMR.
--- NOTE | 2020-11-27 03:38 | NUR ---
PATIENT REQUESTING PAIN MEDS, PATIENT INFORMED THAT IT IS TOO SOON BUT RN COULD GIVE HER TYLENOL. PATIENT AGREES WITH TAKING TYLENOL. K-PAD PLACED TO POSSIBLY HELP WITH PAIN. CALL LIGHT WITHIN REACH. WILL REASSES TO SEE IF PATIENT IS HAVING ANY RELIEF WITH K-PAD.
--- NOTE | 2020-11-27 04:13 | NUR ---
K-PAD APPEARS TO BE HELPING WITH PATIENTS PAIN. PATIENT SNORING.
--- NOTE | 2020-11-27 05:40 | NUR ---
PATIENT UP TO BR WITHOUT ASSIST. PATIENT C/O BACK/RIB PAIN, RATES AT 10/10. OXYCODONE GIVEN PER EMR ORDERS. CALL LIGHT WITHIN REACH.
--- NOTE | 2020-11-27 06:10 | NUR ---
PATIENT SLEEPING, WHEN AROUSED C/O PAIN RATED AT 10/10, PAIN MEDS GIVEN PER ORDERS. CALL LIGHT WITHIN REACH.
--- NOTE | 2020-11-27 06:14 | NUR ---
PATIENT REQUESTED TO HAVE K-PAD TURNED OFF, RN INFORMED PATIENT TO LET STAFF KNOW IF/WHEN SHE WANTED IT TURNED BACK ON. PATIENT VERBALIZES UNDERSTANDING. CALL LIGHT WITHIN REACH.
--- NOTE | 2020-11-27 08:58 | NUR ---
DR. MATHEWS ROUNDED ON PATIENT AT 0830. THIS RN REQUESTED VTE PROPHYLAXIS ORDER (LOVENOX WAS D/C'D ON 11/24). DR. MATHEWS ORDERED SCDS FOR PROPHYLAXIS. THIS RN ALSO UPDATED THAT PT REFUSES TO HAVE BM. PT STATES "I WILL NOT POOP WITH AN AUDIENCE". THIS RN SUGGEST PT USE BATHROOM WITH DOOR ON IT, BUT STILL REFUSED. SUGGESTED AN ENEMA IF PT IS UNABLE TO HAVE BM. MIRIAM FROM CASE MANAGEMENT ROUNDED WELL. CM AWARE OF TOILETING SITUATION. WILL CONTINUE TO MONITOR.
--- NOTE | 2020-11-27 17:41 | NUR ---
PTS MOM CALLED TO CHECK ON PATIENT. THIS RN SPOKE WITH PATIENT AND PT REQUESTED THAT THIS RN "ONLY TELL MOM THAT IM OK, NOTHING ELSE". THIS RN SPOKE WITH PTS MOM AND LET HER KNOW THAT SHE IS DOING OK. NO FURTHER CONCERNS.
--- NOTE | 2020-11-27 17:43 | NUR ---
PT RESTED COMFORTABLY IN BED FOR MOST OF THE DAY. PT REQUIRED PAIN MEDICATION FOR BACK PAIN. PT ATE LUNCH AND DINNER WELL. PT CONTINUES TO HAVE TIMES OF DISORIENTED AND DELUSIONAL SPEECH. PT REFUSING BLOOD DRAWS (AT LEAST 4 TIMES TODAY). THIS RN CONTACTED FOR UPDATE. DR. MARTE SUGGESTED WE LET HER SLEEP TONIGHT AND TRY FOR THE LAB DRAW IN THE MORNING. THIS RN SPOKE WITH PATIENT AND WAS AGREEABLE TO THAT PLAN. WILL CONTINUE TO MONITOR FOR CHANGES AND DISCOMFORT.
--- NOTE | 2020-11-27 20:02 | NUR ---
BEGINING OF SHIFT SUMMARY PT SITTING UP IN BED, APPEARING SLIGHTLY AGITATED, REQUESTING ANXIETY MEDICATION. PT PROVIDED MEDICATION PER JUN. PT IS ON ROOM AIR, IN NO APPARENT DISTRESS. BOWELS TONES PRESENT, COMPLAINTS OF NO BOWEL MOVEMENT D/T PRIVACY. PT PROVIDED STOOL SOFTNER PER JUN. PT ORIENTED TO PRIVATE BATHROOMS X2 WITH A DOOR, PT DECLINES TO USE AT THIS TIME. PT COOPERATED WITH LAB, BLOOD DRAWN FOR POTASSIUM. WILL CONTINUE TO MONITOR FOR PAIN AND ANXIETY.
--- NOTE | 2020-11-28 05:32 | NUR ---
END OF SHIFT SUMMARY PT REMAINED PLEASENT THROUGHTOUT THE NIGHT, CONTINUED BACK PAIN REQUIRING MEDICATION; SEE MAR. PT WAS APPROPRIATE, WITH ANXIETY; MEDICATED PER MAR. PT AMBULATES TO THE BATHROOM WITHOUT DIFFICULTIES. PT CONTINUES WITHOUT A BOWEL MOVEMENT, MEDICATED SEE MAR. PT STATES SHE CANNOT HAVE BM WITH AN AUDIENCE, EVEN THOUGH THERE IS A CLOSED DOOR. PT HAS SPOKEN TO SOME OF HER KIDS BEFORE BED. NO QUESTIONS OR CONCERNS AT THIS TIME. WILL REPORT TO DAY SHIFT RN.
--- NOTE | 2020-11-28 06:03 | NUR ---
BLOOD DRAW AT THIS TIME PT DOES NOT WANT HER BLOOD DRAW. SHE IS BECOMING ANXIOUS AND RESTLESS. DISCUSSED WITH PT IT IS HER DECISION IF WE DO A BLOOD DRAW OR NOT BUT IT IS BENEFICAL TO SEE WHERE HER LAB VAULES ARE AT. SHE WOULD PREFER LAB TO COME BACK WHEN SHE WAKES UP A LITTLE MORE. SPOKE WITH LAB, THEY CAN COME BACK AFTER BREAKFAST.
--- NOTE | 2020-11-28 13:25 | NUR ---
PATIENT HAS BEEN UP AND ABOUT INDEPENDENTLY T/O SHIFT WITHOUT PROBLEM. SHE HAS BEEN ALERT, APPROPRIATE AND COOPERATIVE. PATIENT ALLOWED THE LAB TO DRAW HER BLOOD ON THIS SHIFT. MEDICATED FOR PAIN PRN ORDERED. CALL LIGHT WITHIN REACH. PT NOT WEARING SCD'S SINCE SHE IS UP AND ABOUT INDEPENDENTLY. PATIENT REMOVES SCD'S HERSELF. WILL CONTINUE TO MONITOR.
--- NOTE | 2020-11-28 15:56 | NUR ---
PATIENT C/O BACK DISCOMFORT AND ANXIETY. PATIENT HAD BEEN TALKING TO HER DAUGHTER ON THE PHONE AND APPEARED AGITATED SOON SHE HUNG UP THE TELEPHONE. ATIVAN AND IBUPROFEN GIVEN PER REQUEST. PATIENT MOVED TO RECLINER AND GIVEN WARM BLANKETS. PT STATES THAT SHE FEELS BETTER AND IS MORE COMFORTABLE. WILL CONTINUE TO MONITOR.
--- NOTE | 2020-11-28 17:45 | NUR ---
PATIENT HAS BEEN COOPERAIVE WITH CARE, REQUESTING PAIN MEDICATION WHEN NEEDED. PAIN IS IN BACK AND PT STATES IS TOLERABLE WITH PAIN MEDICATION. PT MOVES ABOUT INDEPENDENTLY GOING TO THE BATHROOM WHEN NEEDED. PT HAD INCREASED ANXIETY ONE TIME DURING THE SHIFT AFTER TALKING TO HER DAUGHTER AND WAS MEDICATED WITH ATIVAN. [facility] PT REFUSED BLOOD DRAW EARLY THIS AM, SHE AGREED TO HAVE IT DRAWN LATER IN THE MORNING.
--- NOTE | 2020-11-28 21:17 | NUR ---
BEGINGING OF SHIFT SUMMARY PT APPEARS ANXIOUS, PACING; REQUESTING ANXIETY MEDICATION, PER MAR NO MEDICATION DUE. PT PROVIDED HOT PEPPERMINT TEA. PT DIET CHANGED TO REGULAR DIET, NO FOOD REUQESTED AT THIS TIME. WILL CONTINUE TO MONITOR
--- NOTE | 2020-11-28 21:41 | NUR ---
MEDICATION REFUSAL PT REFUSED PM STOOL SOFTNERS, SEE MAR. STATES MEDICATION DOES NOT WORK FOR HER. WOULD LIKE TO CONSIDER MIRALAX IN THE AM. PER PT THIS HAS WORKED IN THE PAST.
--- NOTE | 2020-11-28 22:32 | NUR ---
ROUNDING AT THIS TIME PT DOES NOT WANT TO USE THE KPAD FOR BACK PAIN. WOULD LIKE MEDICATION WHEN AVAIABLE. PT REFUESES TO WEAR SCD'S ORDERED. WILL CONTINUE TO MONITOR
--- NOTE | 2020-11-29 05:54 | NUR ---
END OF SHIFT SUMMARY PT CONTINES TO HAVE BACK PAIN AND MUSCLE SPASMS; REQUIRING MEDICATION PER JUN. HEAT THERAPY USED OFF AND ON THROUGHOUT SHIFT WELL PEPPERMINT/CHAMOMILE TEA. PT HAS A SMALL SCAB CENTER BACK, UNCHANGED. PT DECLINED PM BOWEL CARE; WOULD LIKE TO TRY MIRALAX IN THE AM, NO BOWEL MOVEMENT REPORTED. PT REPORTS SLEEPING BETTER WITH THE NEURONTIN. PT DECLINED SCD'S THROUGHOUT THE NIGHT. IV RIGHT UPPER ARM; NO S/S OF INFECTION. PT CAN SELF AMBULATE. WILL REPORT TO DAY SHIFT RN.
--- NOTE | 2020-11-29 11:40 | NUR ---
PATIENT HAS BEEN UP AND ABOUT TO USE RESTROOM. REQUESTED PAIN MEDICATION FOR BACK PAIN AND PATIENT IS NOW RESTING COMFORTABLY. DR MATHEWS HAS BEEN IN TO SEE PATIENT AND REITERATED TO THE PATIENT THAT SHE WILL NEED TO RECEIVE IV ANTIBIOTICS FOR A NUMBER OF WEEKS. THE PATIENTS MOTHER CALLED AND WANTED TO KNOW THE STATUS OF THE PATIENT. PATIENT STATED THAT THIS NURSE COULD LET THE MOTHER KNOW THAT SHE IS DOING FINE. APPLE JUICE AND MIRALX GIVEN PER PT REQUEST. VSS. CALL LIGHT WITHIN REACH. GAIT STEADY. ALERT, APPROPRIATE AND CONVERSIVE WITH STAFF WHEN APPROACHED.
--- NOTE | 2020-11-29 14:53 | NUR ---
PT HAS BEEN UP TO SHOWER AND IS NOW DOING SELF CARE. APPETITE AND FLUID INTAKE GOOD. NO BM AND WILL CONTINUE TO MONITOR. BTX4 PRESENT. PT STATES SHE CAN FEEL MOVEMENT IN HER ABDOMEN.
--- NOTE | 2020-11-29 17:47 | NUR ---
PATIENT HAS BEEN UP AND ABOUT T/O SHIFT AND WALKS AROUND INDEPENDENTLY. PRN PAIN MEDICATION GIVEN Q 6 HOURS REQUESTED. PATIENT HAS ALSO BEEN STRETCHING TO HELP ALLEVIATE SOME OF THE PAIN. IV ANTIBIOITICS CONTINUE. MOOD SEEMS IMPROVED COMPARED TO YESTERDAY. MIRALAX GIVEN, NO RESULTS YET. BT'S ACTIVE IN ALL 4 QUADRANTS. PATIENT WILL LET US KNOW IF SHE WANTS ADDITIONAL INTERVENTION TO HELP WITH BOWEL MOVEMENT. PATIENT ENCOURAGED TO EAT DINNER IN THE SUN ROOM BECAUSE SHE FEELS LIKE SHE IS IN A LONG TERM WITH NO WINDOWS-OFFER ACCEPTED AND APPRECIATED. VSS, PHYSICAL ASSESSMENT UNREMARKABLE.
--- NOTE | 2020-11-29 20:07 | NUR ---
BEGINGING OF SHIFT SUMMARY PT SITTING IN RECLINER IN THE SUN ROOM KNITTING AT THE TABLE. PER REPORT PT SHOWERED TODAY, APPLIED MAKEUP AND DID NAIL CARE. PT SEEMS LESS AGITATED TODAY. SHE REPORTS SOME CRAMPING PAIN IN THE THORACIC SPINE, WARM BLANKET PROVIDED, NO MEDICATIONS AT THIS TIME PER MAR. PT DOES HAVE A SMALL, LESS THAN DIME SIZE OPEN SORE ON THE RIGHT MID BACK, PRIOR THIS WAS SCABED OVER; PT DID SHOWER TODAY. THERE IS A SMALL RED SPOT ON THE LEFT SIDE OF THE MID BACK, NON OPEN. WILL APPLY POLY MEM TO BOTH SITES AND CONTINUE TO MONITOR. PT CONTINUES ON IV ANTIBIOTCS. WILL CONTINE TO MONITOR.
--- NOTE | 2020-11-30 06:13 | NUR ---
END OF SHIFT SUMMARY PT WAS PLEASENT THROUGHOUT SHIFT. PAIN CONTINUES IN THE THORACIC SPINE, PT REPORTS JAYNE AND CRAMPING PAIN; MEDICATED PER MAR, KPAD UTILIZED THROUGHOUT THE NIGHT. PT CONTINUES TO HAVE ANXIETY; RELIEF WITH MEDICATION AND PEPPERMINT/CHAMOMILE TEA, SEE JUN. APPLIED POLYMEM X 2 APPLIED TO AFFECTED AREA MID THORACIC RIGHT AND LEFT SIDE. PT DECLINED PM BOWEL MEDICATION WELL USING SCD'S. PT WOULD LIKE TO TRY MIRALAX IN THE AM. PT IS EXPECTING TO SEE SAW FILER TODAY TO FURTHER DISCUSS OPTIONS FOR DISCHARGE SHE IS HOMELESS AND WILL REQUIRE SEVERAL WEEKS OF IV ANTIBIOTICS PER PROGRESS NOTE. PT'S OVERALL APPEARANCE HAS IMPROVED; SHE FEELS BETTER SINCE TAKING A SHOWER AND DOING SOME SELF CARE. WILL REPORT TO DAY SHIFT RN.
--- NOTE | 2020-11-30 07:48 | NUR ---
ASSUMED CARE OF PT FROM HOTEL BAGGAGE HANDLER RN. PT RESTING IN BED. NO COMPLAINTS OF PAIN SO FAR THIS MORNING. PT WOULD LIKE TO SIT BY WINDOW FOR MEALS, THIS RN WILL ASSIST PT WITH THIS. WILL CONTINUE TO MONITOR.
--- NOTE | 2020-11-30 12:07 | NUR ---
PT VERY TEARFUL AFTER TALKING WITH DR AND SLATE SPLITTER. PT STATES SHE IS SCARED TO LEAVE THE HOSPITAL TO GO TO A PLACE WITH CHILDREN ([facility]) DUE TO COVID. PT REQUESTED NUMBERS FOR HER INSURANCE. THIS RN OBTAINED GENERAL NUMBER FOR [employer] FOR PT TO CALL SHE DESIRES. THIS RN PROVIDED PT WITH COOL WASHCLOTH TO HELP WITH ANXIETY. PT IN AGREEMENT WITH PLAN. SITTING UP EATING LUNCH NOW. NO FURTHER CONCERNS.
--- NOTE | 2020-11-30 15:07 | NUR ---
PT SITTING IN SUNROOM VISABLY AGITATED. THIS RN SPOKE WITH PT AND SHE STATED "ISNT THERE SOMEONE THAT SHOULD BE CALLING MY INSURANCE FOR ME, IM ALREADY SICK. I CANT DO THIS". THIS RN LEFT MESSAGE FOR BARN MANAGER.
--- NOTE | 2020-11-30 15:54 | NUR ---
PT STILL EXTREMELY AGITATED. THIS RN CALLED DR. SEPULVEDA AND EXPRESSED CONCERNS THAT PT MIGHT HAVE USED SUBSTANCES IN HER PERSONAL BELONGINGS. PT WAS CALM AND COOPERATIVE THIS MORNING BUT NOW SHE IS VERY TEARFUL AND AGITATED. STATED WE COULD HOLD HER BELONGINGS FOR HER WHILE SHE IS IN THE HOSPITAL TO LIMIT POSSIBILITY OF PT USING, SINCE SHE HAS ALL HER BELONGINGS WITH HER. THIS RN CALLED [employer], ASKING IF THEY COULD REMOVE PTS BELONGINGS. SECURITY INFORMED THIS RN THAT THEY NORMALLY LOCK ITEMS IN A CUPBOARD IN PTS ROOMS. THIS RN SPOKE WITH PT AND ASKED HER TO HAVE AN HONEST CONVERSATION. PT STATES "I HAVE NOT USED DRUGS SINCE JAMI BEEN IN THE HOSPITAL. I AM JUST WORRIED AND STRESSED ABOUT WHERE I AM GOING TO GO AFTER THE HOSPITAL". THIS RN WILL CONTINUE TO MONITOR AND OBSERVE.
--- NOTE | 2020-11-30 18:17 | NUR ---
PT RESTING IN BED NOW. THIS RN HAD MULTIPLE CONVERSATIONS WITH PT ABOUT TAKING DEEP BREATHS, WALKING AROUND TO RELIEVE ANXIETY. PT EXPRESSES UNDERSTANDING BUT STILL SHOWING SIGNS OF ANXIETY ABOUT LEAVING THE HOSPITAL. PT WAS GIVEN PRN ATIVAN. PT WAS ALSO GIVEN PRN ROXYCODONE, TYLENOL AND MIRALAX TODAY. STAFF FROM [facility] DELIVERED CELL PHONE FOR PT TODAY. CELL PHONE NUMBER FOR NEW PHONE: [phone]. IT HAS BEEN ACTIVATED FOR PATIENT. WILL CONTINUE TO MONITOR AND WILL GIVE REPORT TO ONCOMING PRISON TEACHER RN.
--- NOTE | 2020-12-01 05:01 | NUR ---
JEN WAS ACTIVE DURING THE EARLY PART OF THE EVENING, GETTING UP TO USE THE RESTROOM INDEPENDENTLY. SHE WAS ASKING FOR SEVERAL SNACKS WELL, SO HER APPETITE IS GOOD. SHE IS STILL RECEIVING SCHEDULED IV ANTIBIOTICS THROUGH HER HEPLOCK, WHICH IS FUNCTIONING WELL. SHE SPENT HER EVENING WATCHING MOVIES ON THE IPAD, AND DOZING OFF AND ON. SHE REQUESTED HER ATIVAN, WELL SOME TYLENOL FOR PAIN, AND HAS BEEN SLEEPING PEACEFULLY TONIGHT.
--- NOTE | 2020-12-01 05:03 | NUR ---
PT GIVEN PRN PAIN MEDS AND ATIVAN AT APPROPRIATE TIMES DURING THE NIGHT. PT UP TO BATHROOM INDEPENDENTLY. PT SLEPT WELL THORUGH THE NIGHT, PO FLUIDS AT BEDSIDE.
--- NOTE | 2020-12-01 10:55 | NUR ---
PT UP IN ROOM, WENT TO BATHROOM TO GET DRESSED, PT STATES THAT SHE IS AWAITING HER EXHUSBAND TO COME GET HER. PT ADVISED THAT HER D/C ORDERS HAVE NOT BEEN PLACED AT THIS TIME AND TO AWAIT ORDERS AND D/C PAPERWORK. PT ADVISED THAT SHE IS DUE FOR IV ANTIBIOTICS BEFORE SHE D/C. PT VERBALIZED UNDERSTANDING AND WOULD LIKE ATIVAN AT THIS TIME.
[2020-12-01] MEDS ORDERED: ACET325 PO (12:49)
[2020-12-01] MEDS ORDERED: IBUP600 PO (12:51)
[2020-12-01] MEDS ORDERED: MULVITA PO (12:51)
[2020-12-01] MEDS ORDERED: CEFTRIAXON1 GM/50 M1 IV (12:51)
[2020-12-01] MEDS ORDERED: VISBIOME 112.51 EACH PO (12:52)
[2020-12-01] MEDS ORDERED: THERA-D2000 UNIT PO (12:52)
== END 2020-12-01 13:05 | disposition home or self-care (01) | DRG 872 ==
LOC: ER 17:56 → ORSCIP 22:40 → MEDS 22:40 → ORSCIP 11-26 13:24
PROVIDERS: Emergency Medicine; Internal Medicine; ADMIT Internal Medicine
DX: A41.01 Sepsis due to Methicillin susceptible Staphylococcus aureus (principal); M46.44 Discitis, unspecified, thoracic region; Z59.0 Homelessness; F15.10 Other stimulant abuse, uncomplicated; Z87.442 Personal history of urinary calculi; J45.909 Unspecified asthma, uncomplicated; Z20.822 Contact with and (suspected) exposure to COVID-19; Z98.890 Other specified postprocedural states; F17.210 Nicotine dependence, cigarettes, uncomplicated; E87.6 Hypokalemia; Z79.899 Other long term (current) drug therapy; Z98.51 Tubal ligation status; Z86.73 Personal history of transient ischemic attack (TIA), and cerebral infarction without residual deficits
CPT/HCPCS: 36415; 71045; 72157; 74177; 80048; 80053; 81001; 82947; 83605; 83690; 83735; 84132; 84702; 85025; 85651; 86140; 87040; 87077; 87086; 87186; 93308; 93321; 96365; 96375; 99285-25; A9270; A9579; G0480; J0690; J0696; J1885; J2060; J3480; J7030; J7050; Q9967; U0004

== ENCOUNTER 2020-12-04 02:33 | Day surgery (SDC) | payer OTHER ==
[~2020-12-04 02:33] MED LIST changes: +ACET325 PO; +CEFTRIAXON1 GM/50 M1 IV; +IBUP600 PO; +MULVITA PO; +THERA-D2000 UNIT PO; +VISBIOME 112.51 EACH PO
== END 2020-12-04 14:35 | disposition home or self-care (01) ==
LOC: ATC 02:33
DX: A41.01 Sepsis due to Methicillin susceptible Staphylococcus aureus (principal); J45.909 Unspecified asthma, uncomplicated; F17.210 Nicotine dependence, cigarettes, uncomplicated
CPT/HCPCS: 96365; J0696

== ENCOUNTER 2020-12-05 01:36 | Day surgery (SDC) | payer OTHER | END 2020-12-05 11:00 | disposition home or self-care (01) | LOC: ATC 01:36 | DX: A41.01 Sepsis due to Methicillin susceptible Staphylococcus aureus (principal); J45.909 Unspecified asthma, uncomplicated; F17.210 Nicotine dependence, cigarettes, uncomplicated | CPT/HCPCS: 96365; J0696 ==

== ENCOUNTER 2020-12-06 01:44 | Day surgery (SDC) | payer OTHER | END 2020-12-06 22:37 | disposition home or self-care (01) | LOC: ATC 01:44 | DX: A41.01 Sepsis due to Methicillin susceptible Staphylococcus aureus (principal); J45.909 Unspecified asthma, uncomplicated; F17.210 Nicotine dependence, cigarettes, uncomplicated | CPT/HCPCS: J0696 ==

== ENCOUNTER 2020-12-08 02:34 | Day surgery (SDC) | payer OTHER | END 2020-12-08 11:32 | disposition home or self-care (01) | LOC: ATC 02:34 | DX: A41.9 Sepsis, unspecified organism (principal); J45.909 Unspecified asthma, uncomplicated; F17.210 Nicotine dependence, cigarettes, uncomplicated; E87.6 Hypokalemia; R10.819 Abdominal tenderness, unspecified site; F15.10 Other stimulant abuse, uncomplicated; Z86.19 Personal history of other infectious and parasitic diseases | CPT/HCPCS: 96365; J0696 ==

== ENCOUNTER 2020-12-10 01:27 | Day surgery (SDC) | payer OTHER | END 2020-12-10 23:03 | disposition home or self-care (01) | LOC: ATC 01:27 | DX: A41.9 Sepsis, unspecified organism (principal); J45.909 Unspecified asthma, uncomplicated; F17.210 Nicotine dependence, cigarettes, uncomplicated; M46.44 Discitis, unspecified, thoracic region; Z98.890 Other specified postprocedural states; Z87.442 Personal history of urinary calculi; Z59.0 Homelessness; Z79.899 Other long term (current) drug therapy; Z86.73 Personal history of transient ischemic attack (TIA), and cerebral infarction without residual deficits | CPT/HCPCS: J0696 ==

== ENCOUNTER 2020-12-20 18:27 | Inpatient (IN) | payer OTHER ==
[~2020-12-20] VITALS: Ht 165.1 cm; Wt 72.6 kg
[2020-12-20 19:03] LABS: BASOPHILS ABSOLUTE AUTO 0.01 K/mm3 (0.00-0.23); BASOPHILS PERCENT AUTO 0 % (0-2); EOSINOPHILS ABSOLUTE AUTO 0.13 K/mm3 (0.00-0.68); EOSINOPHILS PERCENT AUTO 2 % (0-6); Hematocrit 32.5 % (33.0-51.0); IMMATURE GRAN ABSOLUTE AUTO 0.02 K/mm3 (0.00-0.10); IMMATURE GRAN PERCENT AUTO 0 % (0-1); LYMPHOCYTES ABSOLUTE AUTO 1.44 K/mm3 (0.84-5.20); LYMPHOCYTES PERCENT AUTO 19 % (21-46); MONOCYTES ABSOLUTE AUTO 1.03 K/mm3 (0.16-1.47); MONOCYTES PERCENT AUTO 13 % (4-13); Mean Corpuscular HGB 29.6 pg (26.0-34.0); Mean Corpuscular HGB Conc 33.8 g/dL (31.5-36.5); Mean Corpuscular Volume 88 fL (80-100); Mean Platelet Volume 8.9 fL (9.1-12.4); NEUTROPHILS ABSOLUTE AUTO 5.11 K/mm3 (1.96-9.15); NEUTROPHILS PERCENT AUTO 66 % (41-73); Platelet Count 389 K/mm3 (150-400); RDW Coefficient Variation 13.3 % (11.7-14.2); RDW Standard Deviation 42.6 fL (35.1-46.3); Red Blood Cell Count 3.71 M/mm3 (3.80-5.20); White Blood Cell Count 7.74 K/mm3 (4.00-11.30)
[2020-12-20 19:23] LABS: Alanine Aminotransfer (ALT/SGP 46 U/L (12-78); Albumin, Blood 2.6 g/dL (3.4-5.0); Albumin/Globulin Ratio 0.5 (0.8-1.8); Alk Phos 208 U/L (50-136); Anion Gap 8 mmol/L (6-16); Aspartate Aminotrans (AST/SGOT 22 U/L (12-37); Bilirubin, Total 0.4 mg/dL (0.1-1.0); Blood Urea Nitrogen 7 mg/dL (8-24); Bun/Creatinine Ratio 10.6 (12.0-20.0); CO2, Blood 28 mmol/L (21-32); Chloride, Blood 101 mmol/L (98-108); Creatinine, Blood 0.66 mg/dL (0.40-1.00); Globulin, Blood 5.1 g/dL (2.2-4.0); Glomerular Filtration Rate >60 (60-); Glucose, Blood 78 mg/dL (70-99); Potassium, Blood 3.8 mmol/L (3.5-5.5); Sodium, Blood 137 mmol/L (136-145); Total Protein, Blood 7.7 g/dL (6.4-8.2)
[2020-12-20 22:52] LABS: U Amphetamine Screen DETECTED; U Barbituate Screen Not Detected; U Benzodiazapine Screen Not Detected; U Buprenorphine Screen Not Detected; U Cannabinoids Screen DETECTED; U Cocaine Screen Not Detected; U Methadone Screen Not Detected; U Methamphetamine Screen DETECTED; U Opiates Screen Not Detected; U Oxycodone Screen Not Detected; U Phencyclidine Screen Not Detected; U Propoxyphene Screen Not Detected
[2020-12-20 23:44] LABS: SARS-Cov-2 (COVID-19) PCR, MMC NEGATIVE (NEGATIVE)
[2020-12-21 05:26] LABS: BASOPHILS ABSOLUTE AUTO 0.02 K/mm3 (0.00-0.23); BASOPHILS PERCENT AUTO 0 % (0-2); EOSINOPHILS ABSOLUTE AUTO 0.17 K/mm3 (0.00-0.68); EOSINOPHILS PERCENT AUTO 3 % (0-6); Hematocrit 31.5 % (33.0-51.0); Hemoglobin 10.2 g/dL (11.5-16.0); IMMATURE GRAN ABSOLUTE AUTO 0.03 K/mm3 (0.00-0.10); IMMATURE GRAN PERCENT AUTO 1 % (0-1); LYMPHOCYTES ABSOLUTE AUTO 1.49 K/mm3 (0.84-5.20); LYMPHOCYTES PERCENT AUTO 25 % (21-46); MONOCYTES ABSOLUTE AUTO 0.62 K/mm3 (0.16-1.47); MONOCYTES PERCENT AUTO 11 % (4-13); Mean Corpuscular HGB 28.5 pg (26.0-34.0); Mean Corpuscular HGB Conc 32.4 g/dL (31.5-36.5); Mean Corpuscular Volume 88 fL (80-100); Mean Platelet Volume 8.9 fL (9.1-12.4); NEUTROPHILS PERCENT AUTO 61 % (41-73); Platelet Count 362 K/mm3 (150-400); RDW Coefficient Variation 13.4 % (11.7-14.2); RDW Standard Deviation 43.8 fL (35.1-46.3); Red Blood Cell Count 3.58 M/mm3 (3.80-5.20); White Blood Cell Count 5.93 K/mm3 (4.00-11.30)
--- NOTE | 2020-12-21 05:28 | NUR ---
SHIFT SUMMARY RECIEVED REPORT FROM TAD RAO, ED. ARRIVED TO MEDICAL UNIT VIA HUDSONLISA @ 1597. TRANSFER ASSISTANCE REQUIRED. VERY SLEEPY UPON ARRIVAL; NOT REALLY ANSWERING MANY QUESTIONS. LATER ABLE TO MAKE NEEDS KNOWN AND MORE ALERT. SBA TO BATHROOM. IV FLUIDS INFUSING WITHOUT COMPLICATION. C/O SPASMS TO BACK; NEW ORDERS FOR VALIUM. ENCOURAGE USE OF HEATING PAD. NO OTHER ACUTE CHANGES NOTED. BED REMAINS IN LOWEST POSITION. CALL LIGHT IN REACH. CONTINUE WITH CURRENT PLAN OF CARE. REPORT TO ONCSONNY RAO.
[2020-12-21 05:58] LABS: Alanine Aminotransfer (ALT/SGP 36 U/L (12-78); Albumin, Blood 2.4 g/dL (3.4-5.0); Albumin/Globulin Ratio 0.5 (0.8-1.8); Alk Phos 182 U/L (50-136); Anion Gap 5 mmol/L (6-16); Aspartate Aminotrans (AST/SGOT 14 U/L (12-37); Bilirubin, Total 0.2 mg/dL (0.1-1.0); Blood Urea Nitrogen 5 mg/dL (8-24); Bun/Creatinine Ratio 8.5 (12.0-20.0); CO2, Blood 28 mmol/L (21-32); Calcium, Blood 8.3 mg/dL (8.5-10.1); Chloride, Blood 107 mmol/L (98-108); Creatinine, Blood 0.59 mg/dL (0.40-1.00); Globulin, Blood 4.5 g/dL (2.2-4.0); Glomerular Filtration Rate >60 (60-); Glucose, Blood 104 mg/dL (70-99); Potassium, Blood 3.7 mmol/L (3.5-5.5); Sodium, Blood 140 mmol/L (136-145); Total Protein, Blood 6.9 g/dL (6.4-8.2)
--- NOTE | 2020-12-21 18:31 | NUR ---
The patient is A/OX4 to person, place time and event. The patient has labile mood resting quit to rolling and stating she is in pain and stating she is in pain. She has pain in her flank and ribs and its controlled with toradol pre EMAR. The patient is a standby assist. She has slept most of the day. Currently the patient is resting in her bed.
[2020-12-22 04:58] LABS: BASOPHILS ABSOLUTE AUTO 0.01 K/mm3 (0.00-0.23); BASOPHILS PERCENT AUTO 0 % (0-2); EOSINOPHILS ABSOLUTE AUTO 0.19 K/mm3 (0.00-0.68); EOSINOPHILS PERCENT AUTO 4 % (0-6); Hematocrit 34.2 % (33.0-51.0); Hemoglobin 11.1 g/dL (11.5-16.0); IMMATURE GRAN ABSOLUTE AUTO 0.02 K/mm3 (0.00-0.10); IMMATURE GRAN PERCENT AUTO 0 % (0-1); LYMPHOCYTES ABSOLUTE AUTO 0.99 K/mm3 (0.84-5.20); LYMPHOCYTES PERCENT AUTO 18 % (21-46); MONOCYTES ABSOLUTE AUTO 0.52 K/mm3 (0.16-1.47); MONOCYTES PERCENT AUTO 10 % (4-13); Mean Corpuscular HGB 28.7 pg (26.0-34.0); Mean Corpuscular HGB Conc 32.5 g/dL (31.5-36.5); Mean Corpuscular Volume 88 fL (80-100); Mean Platelet Volume 9.1 fL (9.1-12.4); NEUTROPHILS ABSOLUTE AUTO 3.76 K/mm3 (1.96-9.15); NEUTROPHILS PERCENT AUTO 68 % (41-73); Platelet Count 258 K/mm3 (150-400); RDW Coefficient Variation 13.4 % (11.7-14.2); RDW Standard Deviation 43.5 fL (35.1-46.3); Red Blood Cell Count 3.87 M/mm3 (3.80-5.20); White Blood Cell Count 5.49 K/mm3 (4.00-11.30)
[2020-12-22 05:35] LABS: Alanine Aminotransfer (ALT/SGP 27 U/L (12-78); Albumin, Blood 2.3 g/dL (3.4-5.0); Albumin/Globulin Ratio 0.5 (0.8-1.8); Alk Phos 171 U/L (50-136); Anion Gap 7 mmol/L (6-16); Aspartate Aminotrans (AST/SGOT 14 U/L (12-37); Bilirubin, Total 0.1 mg/dL (0.1-1.0); Blood Urea Nitrogen 6 mg/dL (8-24); Bun/Creatinine Ratio 10.6 (12.0-20.0); CO2, Blood 27 mmol/L (21-32); Calcium, Blood 7.9 mg/dL (8.5-10.1); Chloride, Blood 107 mmol/L (98-108); Creatinine, Blood 0.57 mg/dL (0.40-1.00); Globulin, Blood 4.3 g/dL (2.2-4.0); Glomerular Filtration Rate >60 (60-); Glucose, Blood 131 mg/dL (70-99); Potassium, Blood 3.9 mmol/L (3.5-5.5); Sodium, Blood 141 mmol/L (136-145); Total Protein, Blood 6.6 g/dL (6.4-8.2)
--- NOTE | 2020-12-22 05:58 | NUR ---
SUMMARY: PT A/OX4, CALLS APPROPRIATELY TO SPECIFY NEEDS AND IS SBA OOB. FLANK AND RIB PAIN SEEMS BETTER CONTROLLED THIS SHIFT PT ONLY C/O PAIN X2 AND SLEPT MAJORITY OF NOCTE. 15 MG IV TORADOL RECIEVED FOR GOOD EFFECT X1 DOSES. SHE HAD (+) BLOOD CX'S: GRAM+ COCCI IN CLUSTERS AND IS CURRENTLY ON CEFAZOLIN. THIS RN IS AWAITING RETURN CALL FROM HOSPITALIST TO DETERMINE IF THESE IV ABX PROVIDE ADEQUATE COVERAGE. SHE REMAINS NSR AT 90'S BPM ON TELEMETRY. VSS AND AFEBRILE, NO ACUTE CHANGES. WCTM AND REPORT TO DAY RN.
--- NOTE | 2020-12-22 06:18 | NUR ---
MADE AWARE OF CRITICAL BLOOD CX'S: GRAM (+) COCCI IN CLUSTERS AND CURRENTLY ON CEFAZOLIN. NO NEW ORDERS RECIEVED.
--- NOTE | 2020-12-22 09:50 | NUR ---
(HOSPITAL SYSTEM WAS DOWN YESTERDAY, THIS NOTE IS FOR 12/21/20) Pt was brought to hospice care sales consultant's attention after she completed the pt's assessment and pt told her that her PCP was Dr. Randolph. Initial assessment has been completed on pt. Notified Dr. Hernandez and at time of chart review, he had not seen the pt. Pt is homeless and was living with her daughter before she was "kicked out" of the home. Pt reports that she is living on the streets, has no car but is still able to drive. Pt reports no support or resources and she has had multiple readmission. Pt is to [facility]. It is also reported that pt has substance abuse problem. Pt reports that her pharmacy is [facility] and her only source of income is [employer]. -kjb
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
--- NOTE | 2020-12-23 04:20 | NUR ---
SHIFT SUMMARY NO ACUTE CHANGES TO REPORT THIS SHIFT. IV ANTIBIOTICS CONTINUED ORERED. PT MEDICATED FOR RIB AND FLANK PAIN PER EMAR ORDERS. PT SLEEPS MOST OF THE SHIFT, SHE IS INDEPENDENT TO THE BSC. VITALS STABLE. BED IN LOWEST POSITION, CALL LIGHT WITHIN REACH.
[2020-12-23 05:32] LABS: BASOPHILS ABSOLUTE AUTO 0.02 K/mm3 (0.00-0.23); BASOPHILS PERCENT AUTO 0 % (0-2); EOSINOPHILS ABSOLUTE AUTO 0.28 K/mm3 (0.00-0.68); EOSINOPHILS PERCENT AUTO 5 % (0-6); Hematocrit 33.2 % (33.0-51.0); Hemoglobin 10.4 g/dL (11.5-16.0); IMMATURE GRAN ABSOLUTE AUTO 0.02 K/mm3 (0.00-0.10); IMMATURE GRAN PERCENT AUTO 0 % (0-1); LYMPHOCYTES PERCENT AUTO 18 % (21-46); MONOCYTES ABSOLUTE AUTO 0.49 K/mm3 (0.16-1.47); MONOCYTES PERCENT AUTO 8 % (4-13); Mean Corpuscular HGB 27.9 pg (26.0-34.0); Mean Corpuscular HGB Conc 31.3 g/dL (31.5-36.5); Mean Corpuscular Volume 89 fL (80-100); Mean Platelet Volume 8.7 fL (9.1-12.4); NEUTROPHILS ABSOLUTE AUTO 4.27 K/mm3 (1.96-9.15); NEUTROPHILS PERCENT AUTO 69 % (41-73); Platelet Count 380 K/mm3 (150-400); RDW Coefficient Variation 13.2 % (11.7-14.2); RDW Standard Deviation 43.5 fL (35.1-46.3); Red Blood Cell Count 3.73 M/mm3 (3.80-5.20); White Blood Cell Count 6.18 K/mm3 (4.00-11.30)
[2020-12-23 06:10] LABS: Anion Gap 6 mmol/L (6-16); Blood Urea Nitrogen 5 mg/dL (8-24); Bun/Creatinine Ratio 9.9 (12.0-20.0); CO2, Blood 28 mmol/L (21-32); Calcium, Blood 8.3 mg/dL (8.5-10.1); Chloride, Blood 105 mmol/L (98-108); Creatinine, Blood 0.51 mg/dL (0.40-1.00); Glomerular Filtration Rate >60 (60-); Glucose, Blood 105 mg/dL (70-99); Potassium, Blood 3.6 mmol/L (3.5-5.5); Sodium, Blood 139 mmol/L (136-145)
--- NOTE | 2020-12-23 15:05 | NUR ---
per chart review with Dr. Encarnacion, no plan for discharge at this time and pt will be staying at this time. -ginna
--- NOTE | 2020-12-23 16:34 | NUR ---
PATIENT REMAINS IN STABLE CONDITION NO COMPLICATIONS NOTED THIS SHIFT PATIENT A&OX4 PLEASANT ABLE TO VERBALIZE NEEDS UP AL LEONADRO WITH STEADY GAIT ATB THERAPY PER IV TOLERATED WELL MEDICATED FOR BACK AND RT FLANK PAIN WITH EFFECTIVENESS REMAINS ON RA RESP EASY/EVEN/UNLABORED VOICES NO CONCERNS WILL CONT TO MONITOR
[2020-12-24 05:11] LABS: BASOPHILS ABSOLUTE AUTO 0.01 K/mm3 (0.00-0.23); BASOPHILS PERCENT AUTO 0 % (0-2); EOSINOPHILS ABSOLUTE AUTO 0.35 K/mm3 (0.00-0.68); EOSINOPHILS PERCENT AUTO 8 % (0-6); Hematocrit 32.6 % (33.0-51.0); Hemoglobin 10.4 g/dL (11.5-16.0); IMMATURE GRAN ABSOLUTE AUTO 0.02 K/mm3 (0.00-0.10); IMMATURE GRAN PERCENT AUTO 0 % (0-1); LYMPHOCYTES ABSOLUTE AUTO 1.06 K/mm3 (0.84-5.20); LYMPHOCYTES PERCENT AUTO 24 % (21-46); MONOCYTES ABSOLUTE AUTO 0.49 K/mm3 (0.16-1.47); MONOCYTES PERCENT AUTO 11 % (4-13); Mean Corpuscular HGB 28.4 pg (26.0-34.0); Mean Corpuscular HGB Conc 31.9 g/dL (31.5-36.5); Mean Corpuscular Volume 89 fL (80-100); Mean Platelet Volume 8.9 fL (9.1-12.4); NEUTROPHILS ABSOLUTE AUTO 2.53 K/mm3 (1.96-9.15); NEUTROPHILS PERCENT AUTO 57 % (41-73); Platelet Count 363 K/mm3 (150-400); RDW Coefficient Variation 13.2 % (11.7-14.2); RDW Standard Deviation 43.2 fL (35.1-46.3); Red Blood Cell Count 3.66 M/mm3 (3.80-5.20); White Blood Cell Count 4.46 K/mm3 (4.00-11.30)
[2020-12-24 05:34] LABS: Anion Gap 5 mmol/L (6-16); Blood Urea Nitrogen 7 mg/dL (8-24); Bun/Creatinine Ratio 13.3 (12.0-20.0); CO2, Blood 30 mmol/L (21-32); Calcium, Blood 8.4 mg/dL (8.5-10.1); Chloride, Blood 108 mmol/L (98-108); Creatinine, Blood 0.53 mg/dL (0.40-1.00); Glomerular Filtration Rate >60 (60-); Glucose, Blood 99 mg/dL (70-99); Potassium, Blood 3.7 mmol/L (3.5-5.5); Sodium, Blood 143 mmol/L (136-145)
--- NOTE | 2020-12-24 06:00 | NUR ---
PT REMAINS LABILE AND PAIN HAS BEEN TREATED PER EMAR THIS SHIFT ALONG WITH IV ABT'S. NO ACUTE CHANGES NOTED. STAFF WILL CONT TO MONITOR.
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
[2020-12-25 05:04] LABS: BASOPHILS ABSOLUTE AUTO 0.03 K/mm3 (0.00-0.23); BASOPHILS PERCENT AUTO 1 % (0-2); EOSINOPHILS ABSOLUTE AUTO 0.26 K/mm3 (0.00-0.68); EOSINOPHILS PERCENT AUTO 6 % (0-6); Hematocrit 33.2 % (33.0-51.0); Hemoglobin 10.7 g/dL (11.5-16.0); IMMATURE GRAN ABSOLUTE AUTO 0.02 K/mm3 (0.00-0.10); IMMATURE GRAN PERCENT AUTO 0 % (0-1); LYMPHOCYTES ABSOLUTE AUTO 1.04 K/mm3 (0.84-5.20); LYMPHOCYTES PERCENT AUTO 22 % (21-46); MONOCYTES ABSOLUTE AUTO 0.44 K/mm3 (0.16-1.47); MONOCYTES PERCENT AUTO 9 % (4-13); Mean Corpuscular HGB 28.5 pg (26.0-34.0); Mean Corpuscular HGB Conc 32.2 g/dL (31.5-36.5); Mean Corpuscular Volume 88 fL (80-100); Mean Platelet Volume 8.7 fL (9.1-12.4); NEUTROPHILS ABSOLUTE AUTO 2.94 K/mm3 (1.96-9.15); NEUTROPHILS PERCENT AUTO 62 % (41-73); Platelet Count 378 K/mm3 (150-400); RDW Coefficient Variation 13.2 % (11.7-14.2); RDW Standard Deviation 43.1 fL (35.1-46.3); Red Blood Cell Count 3.76 M/mm3 (3.80-5.20); White Blood Cell Count 4.73 K/mm3 (4.00-11.30)
[2020-12-25 05:38] LABS: Anion Gap 5 mmol/L (6-16); Blood Urea Nitrogen 10 mg/dL (8-24); Bun/Creatinine Ratio 17.3 (12.0-20.0); CO2, Blood 30 mmol/L (21-32); Calcium, Blood 8.5 mg/dL (8.5-10.1); Chloride, Blood 104 mmol/L (98-108); Creatinine, Blood 0.58 mg/dL (0.40-1.00); Glomerular Filtration Rate >60 (60-); Glucose, Blood 99 mg/dL (70-99); Potassium, Blood 3.9 mmol/L (3.5-5.5); Sodium, Blood 139 mmol/L (136-145)
--- NOTE | 2020-12-25 06:40 | NUR ---
SHAREPOINT ARCHITECT SUMMARY PATIENT REMAINED STABLE OVER THE NIGHT. NO FRESH COMPLAINT. WILL CONTINUE TO MONITOR
--- NOTE | 2020-12-25 14:55 | NUR ---
Packet created for swing beds and faxed to [facility], [facility], [facility], [facility], & [facility]. Created and sent prior auth to [facility] for IV antibiotics (pin to top) Will leave packets with notes for the floor nursing staff if questions come up over the weekend. -ginna
--- NOTE | 2020-12-25 17:56 | NUR ---
SHIFT SUMMARY PT ALERT AND ORIENTED, INDEPENDENT IN ROOM. C/O BACK PAIN RESOLVED WITH MOTRIN. PT DID MAKE AN OFF COMMENT TO HOUSE KEEPING TODAY WHEN ASKED HOW SHE WAS FEELING IT WAS REPORTED SHE STATED SHE WANTED TO PUT A "GUN IN HER MOUTH" AFTER REVIEWING NOTES, SHE HAS MENTIONED THIS IN THE PAST WITH NO ACTUAL DESIRE TO COMMIT SELF HARM. PT HAS BEEN PLEASANT WITH ME THROUGHOUT THE DAY AND THERE HAVE BEEN NO CONCERNS OR RISKY BEHAVIORS OBSERVED. [facility] IS FOLLOWING.
[2020-12-26 05:21] LABS: Hematocrit 31.6 % (33.0-51.0); Hemoglobin 10.1 g/dL (11.5-16.0); Mean Corpuscular HGB 28.7 pg (26.0-34.0); Mean Corpuscular Volume 90 fL (80-100); Mean Platelet Volume 8.8 fL (9.1-12.4); Platelet Count 353 K/mm3 (150-400); RDW Coefficient Variation 13.2 % (11.7-14.2); RDW Standard Deviation 43.4 fL (35.1-46.3); Red Blood Cell Count 3.52 M/mm3 (3.80-5.20); White Blood Cell Count 3.72 K/mm3 (4.00-11.30)
[2020-12-26 05:45] LABS: BASOPHILS ABSOLUTE MAN 0.03 K/mm3 (0.00-0.23); BASOPHILS PERCENT MAN 1 % (0-2); EOSINOPHILS ABSOLUTE MAN 0.33 K/mm3 (0.00-0.68); EOSINOPHILS PERCENT MAN 9 % (0-6); LYMPHOCYTES ABSOLUTE MAN 0.85 K/mm3 (0.84-5.20); LYMPHOCYTES PERCENT MAN 23 % (21-46); MONOCYTES ABSOLUTE MAN 0.37 K/mm3 (0.16-1.47); MONOCYTES PERCENT MAN 10 % (4-13); MYELOCYTE ABSOLUTE MAN 0.03 K/mm3 (0.00-0.00); MYELOCYTE PERCENT MAN 1 % (0-0); NEUTROPHILS ABSOLUTE MAN 2.08 K/mm3 (1.96-9.15); SEG NEUTROPHILS PERCENT MAN 56 % (41-73); TOTAL CELLS COUNTED 100
[2020-12-26 05:52] LABS: Anion Gap 5 mmol/L (6-16); Blood Urea Nitrogen 11 mg/dL (8-24); Bun/Creatinine Ratio 18.8 (12.0-20.0); CO2, Blood 30 mmol/L (21-32); Calcium, Blood 8.5 mg/dL (8.5-10.1); Chloride, Blood 106 mmol/L (98-108); Creatinine, Blood 0.59 mg/dL (0.40-1.00); Glomerular Filtration Rate >60 (60-); Glucose, Blood 90 mg/dL (70-99); Potassium, Blood 3.7 mmol/L (3.5-5.5); Sodium, Blood 141 mmol/L (136-145)
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
[2020-12-26 13:09] LABS: CHLAMYDIA BY NAA Negative (Negative); GONOCOCCUS BY NAA Negative (Negative); TRICH VAG BY NAA Negative (Negative)
--- NOTE | 2020-12-26 17:13 | NUR ---
SHIFT SUMMARY PATIENT IS PLEASENT AND COOPERATIVE WITH CARE. ALERT AND ORIENTATED. PATIENT IS INDEPENDENT IN ROOM. PATIENT HAS REQUESTED ADVIL TWICE TODAY WITH GOOD RESULTS. PATIENT HAS HAD NO ACUTE EVENTS DURING THE SHIFT. VITAL SIGNS REVIEWED. WILL CONTINUE TO MONITOR UNTIL SHIFT CHANGE.
--- NOTE | 2020-12-27 02:59 | NUR ---
PATIENT ALERT AND ORIENTED X4. PATIENT COMPLAINED OF PAIN TO HER LOWER BACK AND PATIENT GOT IBUPROFEN 600MG X1 THIS SHIFT WITH GOOD EFFECT. PATIENT IS PLEASANT AND COOPERATIVE. ALL PO AND IV MEDICATIONS ADMINISTERED ORDERED.PATIENT AMBULATE INDEPENDENTLY IN HER ROOM. DENIES SHORTNESS OF BREATH. PATIENT SLEPT WELL NO COMPLAIN VOICED. .
[2020-12-27 04:58] LABS: BASOPHILS ABSOLUTE AUTO 0.02 K/mm3 (0.00-0.23); BASOPHILS PERCENT AUTO 0 % (0-2); EOSINOPHILS ABSOLUTE AUTO 0.23 K/mm3 (0.00-0.68); EOSINOPHILS PERCENT AUTO 5 % (0-6); Hematocrit 32.2 % (33.0-51.0); Hemoglobin 10.4 g/dL (11.5-16.0); IMMATURE GRAN ABSOLUTE AUTO 0.02 K/mm3 (0.00-0.10); IMMATURE GRAN PERCENT AUTO 0 % (0-1); LYMPHOCYTES ABSOLUTE AUTO 1.39 K/mm3 (0.84-5.20); LYMPHOCYTES PERCENT AUTO 30 % (21-46); MONOCYTES ABSOLUTE AUTO 0.39 K/mm3 (0.16-1.47); MONOCYTES PERCENT AUTO 8 % (4-13); Mean Corpuscular HGB 28.7 pg (26.0-34.0); Mean Corpuscular HGB Conc 32.3 g/dL (31.5-36.5); Mean Corpuscular Volume 89 fL (80-100); Mean Platelet Volume 8.7 fL (9.1-12.4); NEUTROPHILS PERCENT AUTO 56 % (41-73); Platelet Count 349 K/mm3 (150-400); RDW Coefficient Variation 13.2 % (11.7-14.2); RDW Standard Deviation 43.6 fL (35.1-46.3); Red Blood Cell Count 3.62 M/mm3 (3.80-5.20); White Blood Cell Count 4.65 K/mm3 (4.00-11.30)
[2020-12-27 05:36] LABS: Anion Gap 4 mmol/L (6-16); Blood Urea Nitrogen 13 mg/dL (8-24); Bun/Creatinine Ratio 21.3 (12.0-20.0); CO2, Blood 30 mmol/L (21-32); Calcium, Blood 8.4 mg/dL (8.5-10.1); Chloride, Blood 106 mmol/L (98-108); Creatinine, Blood 0.61 mg/dL (0.40-1.00); Glomerular Filtration Rate >60 (60-); Glucose, Blood 81 mg/dL (70-99); Potassium, Blood 4.1 mmol/L (3.5-5.5); Sodium, Blood 140 mmol/L (136-145)
--- NOTE | 2020-12-27 16:37 | NUR ---
SHIFT SUMMARY PATIENT IS PLEASANT AND COOPERATIVE WITH CARE. PATIENT IS ALERT AND ORIENTATED X3. PATIENT OCCASIONALLY HAS VISUAL DISTURBANCES. PATIENT HAS REQUESTED ADVIL FOR PAIN TODAY WITH GOOD RELIEF. VITAL SIGNS REVIEWED. CALL LIGHT IN PLACE. WILL CONTINUE TO MONITOR UNTIL END OF SHIFT.
--- NOTE | 2020-12-28 06:18 | NUR ---
PATIENT IS ALERT AND ORIENTED X4, PLEASANT AND COPERATIVE. PATIENT C/O PAIN TO HER LOWER BANK. PATIENT RECEIVED IBUPRUFEN 600MG WITH MINIMAL EFFECT. PATIENT SLEPT WELL ALL NIGHT NO COMPLAINT VOICED. VITAL SIGNS WNL. WILL CONTINUE MONITOR.
--- NOTE | 2020-12-28 16:29 | NUR ---
PATIENT IS ALERT AND ORIENTED AND COOPERATIVE WITH CARE. SHE CALLS APPROPRIATELY. INDPENDENT IN HER ROOM. C/O BACK PAIN, MEDICATED PER EMAR. WILL CONTINUE TO MONITOR
--- NOTE | 2020-12-29 06:39 | NUR ---
EDDY CURRENT INSPECTOR SUMMARY PATIENT REMAINED STABLE OVER THE NIGHT, NIL FRESH COMPLAINT.
--- NOTE | 2020-12-29 18:17 | NUR ---
Alert and oriented x4, c/o of back pain , ibuprofen 600 mg po was given and was effective. Continue on ABO therapy , no adverse effects noted. Ambulate independenly. HAD shower this morning. No behavior issue noted . continue to monitor.
--- NOTE | 2020-12-30 04:01 | NUR ---
PATIENT HAD A CALM SHIFT WITH VITALAS STABLE. NIL FRESH COMP[LAINT. WILL CONTINUE TO MONITOR PATIENT
--- NOTE | 2020-12-30 11:00 | NUR ---
Placement issue due to drug use and IV port access that could be used for illicit drug abuse. Discussed possible d/c with appts at [facility] but due to high risk of using port for drug use, this idea was not pursued. Still waiting to hear from facilities that packets were sent to. ([id number], 11:00 AM)
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
--- NOTE | 2020-12-31 04:29 | NUR ---
END OF SHIFT SUMMARY NIL FRESH COMPLAINT OVER THE NIGHT. WILL CONTINUE TO MONITOR PATIENT
[2020-12-31 04:53] LABS: BASOPHILS ABSOLUTE AUTO 0.03 K/mm3 (0.00-0.23); BASOPHILS PERCENT AUTO 1 % (0-2); EOSINOPHILS ABSOLUTE AUTO 0.21 K/mm3 (0.00-0.68); EOSINOPHILS PERCENT AUTO 4 % (0-6); Hematocrit 33.4 % (33.0-51.0); Hemoglobin 10.6 g/dL (11.5-16.0); IMMATURE GRAN ABSOLUTE AUTO 0.04 K/mm3 (0.00-0.10); IMMATURE GRAN PERCENT AUTO 1 % (0-1); LYMPHOCYTES ABSOLUTE AUTO 1.33 K/mm3 (0.84-5.20); LYMPHOCYTES PERCENT AUTO 24 % (21-46); MONOCYTES PERCENT AUTO 9 % (4-13); Mean Corpuscular HGB 28.4 pg (26.0-34.0); Mean Corpuscular HGB Conc 31.7 g/dL (31.5-36.5); Mean Corpuscular Volume 90 fL (80-100); Mean Platelet Volume 8.8 fL (9.1-12.4); NEUTROPHILS ABSOLUTE AUTO 3.44 K/mm3 (1.96-9.15); NEUTROPHILS PERCENT AUTO 62 % (41-73); Platelet Count 415 K/mm3 (150-400); RDW Coefficient Variation 13.8 % (11.7-14.2); RDW Standard Deviation 45.1 fL (35.1-46.3); Red Blood Cell Count 3.73 M/mm3 (3.80-5.20); White Blood Cell Count 5.55 K/mm3 (4.00-11.30)
[2020-12-31 05:16] LABS: Alanine Aminotransfer (ALT/SGP 124 U/L (12-78); Albumin, Blood 2.4 g/dL (3.4-5.0); Albumin/Globulin Ratio 0.5 (0.8-1.8); Alk Phos 247 U/L (50-136); Anion Gap 4 mmol/L (6-16); Aspartate Aminotrans (AST/SGOT 188 U/L (12-37); Bilirubin, Total 0.1 mg/dL (0.1-1.0); Blood Urea Nitrogen 13 mg/dL (8-24); Bun/Creatinine Ratio 24.7 (12.0-20.0); CO2, Blood 29 mmol/L (21-32); Calcium, Blood 8.7 mg/dL (8.5-10.1); Chloride, Blood 107 mmol/L (98-108); Creatinine, Blood 0.53 mg/dL (0.40-1.00); Globulin, Blood 4.4 g/dL (2.2-4.0); Glomerular Filtration Rate >60 (60-); Glucose, Blood 89 mg/dL (70-99); Potassium, Blood 3.9 mmol/L (3.5-5.5); Sodium, Blood 140 mmol/L (136-145); Total Protein, Blood 6.8 g/dL (6.4-8.2)
--- NOTE | 2020-12-31 17:46 | NUR ---
backup administrative coordinator Elma Cabezas with [employer] was working with pt. previously. I began working on her care last night. Contacted [facility] to request additional assistance with this mutual patient. Ria has complex social needs that are complicated further by her current medical needs including IV abx. Explored the option of inpatient treatment at a facility with the skill level needed to administer abx. Per [facility] case management, that is not a likely option at this time. Pt. did seemed resistant to the idea of inpatient treatment as well. Psych eval completed yesterday and notes indicate that pt. is receptive to making changes in her life and that she is not likely to use picc line for IV drug use. Requested hotel stay x 4 weeks while pt. recovering with [facility] to cover cost[facility] to ensure that pt. has weekly support and frequent check-ins. Requested transportation through [facility] to [facility] infusion clinic to be scheduled in advance prior to discharge. At this time, it is unlikely that we will be able to facilitate IV abx. QID through either HH or [facility]. Discussed further with Dr. Tinoco. She has requested ID consult to review options for antibiotics at this time. If pt. was able to transition to BID IV abx. then we can facilitate through [facility] at [facility]. Plan to review consult notes and discuss further [facility] case management tomorrow morning.
--- NOTE | 2020-12-31 18:19 | NUR ---
Alert and oriented x3 , able to make needs known. c/o back and rib pain 9/10 , Ibuprofen was given but ineffective. Meloxican was order but patient states she needs more stronger pain medication . Tramadol 50 mg once was order and given and it was tolerated , pain decreased to 6/10. Continue on ABO therapy, no adverse effects noted.Lidocaine was applied on back and was effectively. Refused lovenox . Continue to monitor. Awaiting placement to SNF.
--- NOTE | 2021-01-01 05:35 | NUR ---
PATIENT IS ALERT AND ORIENTED, DENIES NAUSEA OR SOB. PATIENT AT START OF THIS SHIFT COMPLAINED OF PAIN TO HER BACK. MD CRANE OPERATOR WAS CALLED AND GOT A ONE TIME ORDER FOR OXYCODONE 5MG WITH GOOD EFFECT. PATIENT CONTINUES ON IV ANTIBIOTIC CEFAZOLIN. VITAL SIGNS STABLE. WILL CONTINUE TO MONITOR.
--- NOTE | 2021-01-01 10:08 | NUR ---
Spoke with pt. this morning and provided update on the progress we have made with her discharge planning. [facility] is submitting the paperwork today to obtain approval for temporary housing. They will work towards long-term housing in the outpatient setting. Ria has complex social needs that are complicated further by her current medical needs including IV abx. Dr. Tinoco has ordered repeat blood cultures. Considering ID consult pending culture results. Hopeful that there will be an option for adjustments to abx. with dosing BID. Limited options for appropriate outpatient placement. If unable to adjust abx. the next best option could potentially be SNF placement. That would require special approval both on the part of the facility and prior auth. It is likely a better option than an extended hospital stay until abx. course complete. Plan to continue to work through social disparities with patient and [facility]. Will await pending culture results and potentially ID consult if indicated.
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
--- NOTE | 2021-01-01 17:42 | NUR ---
ALERT. ORIENTED. ABLE TO MAKE NEEDS KNOWN. CHANGED PAIN MEDS WHICH HAVE BEEN EFFECTIVE FOR PATIENT. LIDOCAINE PATCH TO RT LATERAL RIB/BACK. PATIENT STS PAIN WAS BILATERAL LATERAL RIB/BACK AREA, BUT TODAY JUST ON RT SIDE. SEEMS TO BE IMPROVING. UNLABORED RESPIRATIONS. WCTM
--- NOTE | 2021-01-02 04:47 | NUR ---
PT RESTING IN BED, MAKING NO COMPLAINTS AT THIS TIME. PT REMAINS ALERT AND ORIENTED X4, PAIN TREATED PER EMAR AND IV WNL. PT REMAINS IND IN ROOM WITH BATHROOM PRIV. NO CHANGES THIS SHIFT. STAFF WILL CONT TO MONITOR.
[2021-01-02 09:50] LABS: BASOPHILS ABSOLUTE AUTO 0.01 K/mm3 (0.00-0.23); BASOPHILS PERCENT AUTO 0 % (0-2); EOSINOPHILS ABSOLUTE AUTO 0.17 K/mm3 (0.00-0.68); EOSINOPHILS PERCENT AUTO 3 % (0-6); Hematocrit 34.3 % (33.0-51.0); Hemoglobin 10.8 g/dL (11.5-16.0); IMMATURE GRAN ABSOLUTE AUTO 0.04 K/mm3 (0.00-0.10); IMMATURE GRAN PERCENT AUTO 1 % (0-1); LYMPHOCYTES ABSOLUTE AUTO 1.49 K/mm3 (0.84-5.20); LYMPHOCYTES PERCENT AUTO 30 % (21-46); MONOCYTES ABSOLUTE AUTO 0.51 K/mm3 (0.16-1.47); MONOCYTES PERCENT AUTO 10 % (4-13); Mean Corpuscular HGB 28.6 pg (26.0-34.0); Mean Corpuscular HGB Conc 31.5 g/dL (31.5-36.5); Mean Corpuscular Volume 91 fL (80-100); Mean Platelet Volume 8.8 fL (9.1-12.4); NEUTROPHILS PERCENT AUTO 56 % (41-73); Platelet Count 458 K/mm3 (150-400); RDW Coefficient Variation 14.3 % (11.7-14.2); Red Blood Cell Count 3.78 M/mm3 (3.80-5.20); White Blood Cell Count 5.02 K/mm3 (4.00-11.30)
[2021-01-02 10:08] LABS: Alanine Aminotransfer (ALT/SGP 104 U/L (12-78); Albumin, Blood 2.7 g/dL (3.4-5.0); Albumin/Globulin Ratio 0.6 (0.8-1.8); Alk Phos 243 U/L (50-136); Anion Gap 3 mmol/L (6-16); Aspartate Aminotrans (AST/SGOT 110 U/L (12-37); Bilirubin, Total 0.3 mg/dL (0.1-1.0); Blood Urea Nitrogen 12 mg/dL (8-24); Bun/Creatinine Ratio 20.1 (12.0-20.0); CO2, Blood 31 mmol/L (21-32); Calcium, Blood 8.7 mg/dL (8.5-10.1); Chloride, Blood 105 mmol/L (98-108); Globulin, Blood 4.7 g/dL (2.2-4.0); Glomerular Filtration Rate >60 (60-); Glucose, Blood 69 mg/dL (70-99); Potassium, Blood 4.1 mmol/L (3.5-5.5); Sodium, Blood 139 mmol/L (136-145); Total Protein, Blood 7.4 g/dL (6.4-8.2)
--- NOTE | 2021-01-03 06:19 | NUR ---
TERADATA SOLUTION ARCHITECT SUMMARY PATIENT HAD A CALM SHIFT NO COMPLAINT OVER THE NIGHT
[2021-01-03 08:11] LABS: BASOPHILS ABSOLUTE AUTO 0.01 K/mm3 (0.00-0.23); BASOPHILS PERCENT AUTO 0 % (0-2); EOSINOPHILS ABSOLUTE AUTO 0.16 K/mm3 (0.00-0.68); EOSINOPHILS PERCENT AUTO 4 % (0-6); Hematocrit 33.4 % (33.0-51.0); Hemoglobin 10.6 g/dL (11.5-16.0); IMMATURE GRAN ABSOLUTE AUTO 0.03 K/mm3 (0.00-0.10); IMMATURE GRAN PERCENT AUTO 1 % (0-1); LYMPHOCYTES ABSOLUTE AUTO 1.35 K/mm3 (0.84-5.20); LYMPHOCYTES PERCENT AUTO 30 % (21-46); MONOCYTES ABSOLUTE AUTO 0.43 K/mm3 (0.16-1.47); MONOCYTES PERCENT AUTO 9 % (4-13); Mean Corpuscular HGB 28.6 pg (26.0-34.0); Mean Corpuscular HGB Conc 31.7 g/dL (31.5-36.5); Mean Corpuscular Volume 90 fL (80-100); Mean Platelet Volume 8.8 fL (9.1-12.4); NEUTROPHILS ABSOLUTE AUTO 2.59 K/mm3 (1.96-9.15); NEUTROPHILS PERCENT AUTO 57 % (41-73); Platelet Count 459 K/mm3 (150-400); RDW Coefficient Variation 14.5 % (11.7-14.2); RDW Standard Deviation 46.9 fL (35.1-46.3); Red Blood Cell Count 3.71 M/mm3 (3.80-5.20); White Blood Cell Count 4.57 K/mm3 (4.00-11.30)
[2021-01-03 08:27] LABS: Alanine Aminotransfer (ALT/SGP 79 U/L (12-78); Albumin, Blood 2.5 g/dL (3.4-5.0); Albumin/Globulin Ratio 0.5 (0.8-1.8); Alk Phos 242 U/L (50-136); Anion Gap 4 mmol/L (6-16); Aspartate Aminotrans (AST/SGOT 79 U/L (12-37); Bilirubin, Total 0.2 mg/dL (0.1-1.0); Blood Urea Nitrogen 11 mg/dL (8-24); Bun/Creatinine Ratio 22.3 (12.0-20.0); CO2, Blood 30 mmol/L (21-32); Calcium, Blood 8.6 mg/dL (8.5-10.1); Chloride, Blood 106 mmol/L (98-108); Creatinine, Blood 0.49 mg/dL (0.40-1.00); Globulin, Blood 4.6 g/dL (2.2-4.0); Glomerular Filtration Rate >60 (60-); Glucose, Blood 84 mg/dL (70-99); Potassium, Blood 4.1 mmol/L (3.5-5.5); Sodium, Blood 140 mmol/L (136-145); Total Protein, Blood 7.1 g/dL (6.4-8.2)
--- NOTE | 2021-01-03 18:32 | NUR ---
Alert and oriented x3 , able to make needs known. Continue on ABO therapy for thoracic discitis , no adverse effects noted. oxycodone and mobic were given for pain management , it was given. Independent with ADLS, NO behavior issue noted. awaiting for placement. Continue to monitor.
--- NOTE | 2021-01-04 05:07 | NUR ---
END OF SHIFT REPORT PATIENT VITALS ARE STABLE NO ISSUES OVER THE NIGHT. SHE COMPLAINED OF PAIN ON WAKING UP THIS MORNING, THE MATERIAL LISTER GAVE HER HER PAIN MED, SEE EMAR
[2021-01-04 08:23] LABS: BASOPHILS ABSOLUTE AUTO 0.01 K/mm3 (0.00-0.23); BASOPHILS PERCENT AUTO 0 % (0-2); EOSINOPHILS ABSOLUTE AUTO 0.17 K/mm3 (0.00-0.68); EOSINOPHILS PERCENT AUTO 4 % (0-6); Hematocrit 32.9 % (33.0-51.0); Hemoglobin 10.6 g/dL (11.5-16.0); IMMATURE GRAN ABSOLUTE AUTO 0.03 K/mm3 (0.00-0.10); IMMATURE GRAN PERCENT AUTO 1 % (0-1); LYMPHOCYTES ABSOLUTE AUTO 1.24 K/mm3 (0.84-5.20); LYMPHOCYTES PERCENT AUTO 29 % (21-46); MONOCYTES ABSOLUTE AUTO 0.46 K/mm3 (0.16-1.47); MONOCYTES PERCENT AUTO 11 % (4-13); Mean Corpuscular HGB Conc 32.2 g/dL (31.5-36.5); Mean Corpuscular Volume 90 fL (80-100); NEUTROPHILS ABSOLUTE AUTO 2.43 K/mm3 (1.96-9.15); NEUTROPHILS PERCENT AUTO 56 % (41-73); Platelet Count 429 K/mm3 (150-400); RDW Coefficient Variation 14.6 % (11.7-14.2); RDW Standard Deviation 47.8 fL (35.1-46.3); Red Blood Cell Count 3.65 M/mm3 (3.80-5.20); White Blood Cell Count 4.34 K/mm3 (4.00-11.30)
[2021-01-04 08:51] LABS: Alanine Aminotransfer (ALT/SGP 82 U/L (12-78); Albumin, Blood 2.5 g/dL (3.4-5.0); Albumin/Globulin Ratio 0.6 (0.8-1.8); Alk Phos 253 U/L (50-136); Anion Gap 3 mmol/L (6-16); Aspartate Aminotrans (AST/SGOT 82 U/L (12-37); Bilirubin, Total 0.3 mg/dL (0.1-1.0); Blood Urea Nitrogen 11 mg/dL (8-24); Bun/Creatinine Ratio 21.8 (12.0-20.0); CO2, Blood 30 mmol/L (21-32); Calcium, Blood 8.4 mg/dL (8.5-10.1); Chloride, Blood 106 mmol/L (98-108); Creatinine, Blood 0.51 mg/dL (0.40-1.00); Globulin, Blood 4.4 g/dL (2.2-4.0); Glomerular Filtration Rate >60 (60-); Glucose, Blood 83 mg/dL (70-99); Potassium, Blood 4.2 mmol/L (3.5-5.5); Sodium, Blood 139 mmol/L (136-145); Total Protein, Blood 6.9 g/dL (6.4-8.2)
--- NOTE | 2021-01-04 17:20 | NUR ---
01/04/21: Per chart review with Dr. Encarnacion, pt. is able to switch to ceftriaxone 2 g qd x 4 weeks IV. [facility] has set pt. up with a hotel for 4 - 6 weeks and will be assisting pt. with long-term care planning including housing. Order faxed to [facility] for outpatient IV antibiotics. Left message for staff to return my call to discuss transportation and plan for care moving forward. Also faxed all relevant chart notes and labs. Pt. will need to understand that it is important to follow this care plan to continue to receive resources and assistance with housing. [facility] case management will follow patient closely. I am also working to potentially assist pt. with additional support.
--- NOTE | 2021-01-04 18:43 | NUR ---
Alert and oriented x3 . continue on pain management for thoracic discitis , mostly asked for oxycodone and it was effective. IV ABO therapy for thoracic discitis/ osteomylites, no adverse effects. Indepedent with ADLS. Vital signs are stable. Continue to monitor.
[2021-01-05 05:01] LABS: BASOPHILS ABSOLUTE AUTO 0.02 K/mm3 (0.00-0.23); BASOPHILS PERCENT AUTO 1 % (0-2); EOSINOPHILS ABSOLUTE AUTO 0.19 K/mm3 (0.00-0.68); EOSINOPHILS PERCENT AUTO 5 % (0-6); Hematocrit 32.7 % (33.0-51.0); Hemoglobin 10.4 g/dL (11.5-16.0); Mean Corpuscular HGB 28.9 pg (26.0-34.0); Mean Corpuscular HGB Conc 31.8 g/dL (31.5-36.5); Mean Corpuscular Volume 91 fL (80-100); Mean Platelet Volume 8.8 fL (9.1-12.4); Platelet Count 394 K/mm3 (150-400); RDW Coefficient Variation 14.5 % (11.7-14.2); RDW Standard Deviation 47.9 fL (35.1-46.3); White Blood Cell Count 3.97 K/mm3 (4.00-11.30)
[2021-01-05 05:05] LABS: IMMATURE GRAN ABSOLUTE AUTO 0.02 K/mm3 (0.00-0.10); IMMATURE GRAN PERCENT AUTO 1 % (0-1); LYMPHOCYTES ABSOLUTE AUTO 1.44 K/mm3 (0.84-5.20); LYMPHOCYTES PERCENT AUTO 36 % (21-46); MONOCYTES ABSOLUTE AUTO 0.37 K/mm3 (0.16-1.47); MONOCYTES PERCENT AUTO 9 % (4-13); NEUTROPHILS ABSOLUTE AUTO 1.93 K/mm3 (1.96-9.15); NEUTROPHILS PERCENT AUTO 49 % (41-73)
[2021-01-05 05:15] LABS: Anion Gap 5 mmol/L (6-16); Blood Urea Nitrogen 14 mg/dL (8-24); Bun/Creatinine Ratio 23.3 (12.0-20.0); CO2, Blood 29 mmol/L (21-32); Calcium, Blood 8.3 mg/dL (8.5-10.1); Chloride, Blood 106 mmol/L (98-108); Glomerular Filtration Rate >60 (60-); Glucose, Blood 87 mg/dL (70-99); Sodium, Blood 140 mmol/L (136-145)
--- NOTE | 2021-01-05 05:47 | NUR ---
SHIFT SUMMARY NO ACUTE CHANGES THIS SHIFT. AOX4. VSS. HAS OCCASIONAL RAPID SPEECH c RANDOM TOPICS. PLEASENT & COOPERATIVE. DENIES N/V OR SOB. REPORTS 7-01/10 PAIN IN R SIDE & BACK, MEDICATED @ c SCHEDULED GABAPENTIN & THIS AM c 5MG OXYCODONE. PT RESTED SOUNDLY T/O NIGHT. AWAITING SAFE DC PLAN. CALL LIGHT IN REACH. TM.
[2021-01-05] MEDS ORDERED: CEFTRIAXONE2 G1 IV (09:59)
[2021-01-05] MEDS ORDERED: MELO7.5 PO (10:00)
[2021-01-05] MEDS ORDERED: ROXICODONE5 MG PO (10:03)
[2021-01-05] MEDS ORDERED: Naltrexone HCl50 MG PO (10:04)
[2021-01-05] MEDS ORDERED: QUET100 PO (10:05)
--- NOTE | 2021-01-05 14:16 | NUR ---
Per chart review this am with Dr. Encarnacion, concern for discharging pt. with picc line. It would be in patient's best interest to D/C with orders for IV daily abx through infusion center. Contacted [facility] infusion center ([facility]) and discussed options with the nurse Georgina Matthews. They are agreeable to order for abx. within "in and out" IV daily. Note added to contact PCP to get order for powerglide if indicated based on difficulty with establishing IV. Updated orders faxed through [facility] EMR system. Patient scheduled with [facility] daily at 10:30 am x 4 weeks. analytics senior manager assigned to patient through [facility] Sharmaine has scheduled daily transportation. Temporary housing will be provided by [facility] at the [facility] in [place] [address]. analytics senior manager will be following patient closely to ensure compliance and assist with resources. She is working with pt. to establish long-term housing as well. Patient's PCP has been in [place]. We will get patient established with [facility] PCP in [place] and also provide a warm hand-off from PCP visit to [facility]. Plan to update chart with those dates prior to discharge. Pt. will need to have a working phone. Per patient her cell phone is out of minutes. That is something that [facility] can assist with. They are working on that now. Plan to ensure cell phone in place prior to discharge. Sharmaine will contact me back soon with info. Additionally, I have requested assistance for pt. with setting goals. It would benefit pt. to have hope for her future. Establishing and maintaining employement is a realistic goal. [facility] will get pt. connected with assistance for finding employement when her condition has improved. This will be contingent upon patients compliance of course.
--- NOTE | 2021-01-05 16:04 | NUR ---
DISCHARGE PATIENT TRANSPORTED VIA WHEELCHAIR TO [place] [facility] TO [facility]. DISCHARGE INSTRUCTIONS EXPLAINED TO PATIENT. PATIENT STATED UNDERSTANDING. PACKET SENT WITH PATIENT. IV REMOVED WITHOUT DIFFICULTY. [facility] TO COORDINATE DELIVERY TO [facility]. [facility] TO SCHED[facility]LE FOLLOW UP. [facility]
--- NOTE | 2021-01-05 17:30 | NUR ---
Update: Pt. discharged. Hospital F/U with Dr. Encarnacion on 01/12/21 at 4:20 PM. Scheduled with [facility] at 4 pm for brief intervention prior to PCP visit. IV infusion abx. daily through [facility] at 10:30am. Transportation has been set up for that.
== END 2021-01-05 16:03 | disposition home or self-care (01) | DRG 540 ==
LOC: ER 18:27 → MEDS 18:28
PROVIDERS: Family Medicine; Internal Medicine; Physician Assistant; ADMIT Internal Medicine
DX: M46.34 Infection of intervertebral disc (pyogenic), thoracic region (principal); F19.20 Other psychoactive substance dependence, uncomplicated; T74.21XA Adult sexual abuse, confirmed, initial encounter; Z16.11 Resistance to penicillins; R78.81 Bacteremia; M46.24 Osteomyelitis of vertebra, thoracic region; R74.01 Elevation of levels of liver transaminase levels; J45.909 Unspecified asthma, uncomplicated; F25.9 Schizoaffective disorder, unspecified; F17.210 Nicotine dependence, cigarettes, uncomplicated; F15.10 Other stimulant abuse, uncomplicated; Z88.8 Allergy status to other drugs, medicaments and biological substances; Z87.442 Personal history of urinary calculi; Z98.890 Other specified postprocedural states; Z98.51 Tubal ligation status; Z91.14 Patient's other noncompliance with medication regimen; Z59.00 Homelessness unspecified
CPT/HCPCS: 36415; 74177; 76705; 80048; 80053; 81025; 83605; 83690; 85025; 86592; 87040; 87077; 87086; 87147; 87186; 87491; 87591; 87661; 96365-59; 96366; 96375; 96376; 97110; 97161; 97165; 99285-25; A9270; G0378; J0690; J0696; J1885; J2405; J3010; J3360; J7030; J7050; Q9967; U0004

== ENCOUNTER 2021-01-06 10:24 | Day surgery (SDC) | payer OTHER ==
[~2021-01-06 10:24] MED LIST changes: +CEFTRIAXONE2 G1 IV; +MELO7.5 PO; +Naltrexone HCl50 MG PO; +QUET100 PO; +ROXICODONE5 MG PO
== END 2021-01-06 11:10 | disposition home or self-care (01) ==
LOC: ATC 10:24
DX: M46.44 Discitis, unspecified, thoracic region (principal); M86.9 Osteomyelitis, unspecified; F15.10 Other stimulant abuse, uncomplicated; F25.9 Schizoaffective disorder, unspecified; J45.909 Unspecified asthma, uncomplicated; F17.210 Nicotine dependence, cigarettes, uncomplicated; Z59.00 Homelessness unspecified
CPT/HCPCS: 96365; J0696

== ENCOUNTER 2021-01-11 02:43 | Day surgery (SDC) | payer OTHER ==
--- NOTE | 2021-01-11 10:55 | NUR ---
Faxed a notification to Dr. Encarnacion's office that pt has not shown for the last five days to receive her antibiotics. Pt will need to see her PCP prior to resuming antibiotic therapy in the [facility].
== END 2021-01-11 22:53 | disposition home or self-care (01) ==
LOC: ATC 02:43
DX: M46.44 Discitis, unspecified, thoracic region (principal)
CPT/HCPCS: J0696

== ENCOUNTER 2021-01-22 19:39 | Emergency (ER) | payer OTHER ==
[~2021-01-22] VITALS: Ht 162.6 cm; Wt 76.2 kg
[2021-01-22] MEDS ORDERED: GABA100 (19:57)
[2021-01-22 23:41] LABS: BASOPHILS ABSOLUTE AUTO 0.02 K/mm3 (0.00-0.23); BASOPHILS PERCENT AUTO 0 % (0-2); EOSINOPHILS ABSOLUTE AUTO 0.08 K/mm3 (0.00-0.68); EOSINOPHILS PERCENT AUTO 1 % (0-6); Hematocrit 36.2 % (33.0-51.0); IMMATURE GRAN ABSOLUTE AUTO 0.04 K/mm3 (0.00-0.10); IMMATURE GRAN PERCENT AUTO 0 % (0-1); LYMPHOCYTES ABSOLUTE AUTO 1.54 K/mm3 (0.84-5.20); LYMPHOCYTES PERCENT AUTO 12 % (21-46); MONOCYTES ABSOLUTE AUTO 0.68 K/mm3 (0.16-1.47); MONOCYTES PERCENT AUTO 5 % (4-13); Mean Corpuscular HGB 27.9 pg (26.0-34.0); Mean Corpuscular HGB Conc 33.1 g/dL (31.5-36.5); Mean Corpuscular Volume 84 fL (80-100); Mean Platelet Volume 8.6 fL (9.1-12.4); NEUTROPHILS ABSOLUTE AUTO 10.14 K/mm3 (1.96-9.15); NEUTROPHILS PERCENT AUTO 81 % (41-73); Platelet Count 540 K/mm3 (150-400); RDW Coefficient Variation 14.1 % (11.7-14.2); RDW Standard Deviation 43.6 fL (35.1-46.3)
[2021-01-23 00:04] LABS: Anion Gap 10 mmol/L (6-16); Blood Urea Nitrogen 9 mg/dL (8-24); Bun/Creatinine Ratio 23.2 (12.0-20.0); CO2, Blood 25 mmol/L (21-32); Calcium, Blood 9.3 mg/dL (8.5-10.1); Chloride, Blood 99 mmol/L (98-108); Creatinine, Blood 0.39 mg/dL (0.40-1.00); Glomerular Filtration Rate >60 (60-); Glucose, Blood 105 mg/dL (70-99); Potassium, Blood 3.3 mmol/L (3.5-5.5); Sodium, Blood 134 mmol/L (136-145)
[2021-01-23 01:11] LABS: Source, Urine Catheter
[2021-01-23 01:15] LABS: Appearance, Urine Clear (Clear); Bilirubin, Urine Neg (Neg); Blood, Urine 1+ (Neg); Color, Urine Yellow (P-Yellow); Glucose Qualitative, Urine Neg (Neg); Ketones, Urine 3+ (Neg); Leukocyte Esterase, Urine Neg (Neg); Nitrite, Urine Neg (Neg); Protein, Urine Neg (Neg); Specific Gravity, Urine 1.015 (1.003-1.022); Urobilinogen, Urine NORM (Normal)
[2021-01-23 01:24] LABS: Bacteria Many /hpf; Red Blood Cells, Urine 0-2 /hpf (0-2); Squamous Epithelial Cells Mod /hpf (Few)
[2021-01-23 02:01] LABS: Influenza A, PCR NEGATIVE (NEGATIVE); Influenza B, PCR NEGATIVE (NEGATIVE); Resp Syncytial Virus, PCR NEGATIVE (NEGATIVE); SARS-Cov-2 (COVID-19) PCR, MMC NEGATIVE (NEGATIVE)
== END 2021-01-23 06:50 | disposition short-term general hospital (02) ==
LOC: ER 19:39
PROVIDERS: Student in an Organized Health Care Education/Training Program
DX: M46.24 Osteomyelitis of vertebra, thoracic region (principal); G06.2 Extradural and subdural abscess, unspecified; D72.829 Elevated white blood cell count, unspecified; J45.909 Unspecified asthma, uncomplicated; F17.210 Nicotine dependence, cigarettes, uncomplicated; Z88.8 Allergy status to other drugs, medicaments and biological substances; Z79.899 Other long term (current) drug therapy
CPT/HCPCS: 0241U; 36415; 51798; 71045; 72129; 72132; 80048; 81001; 83605; 85025; 85651; 86141; 87086; 96365; 96366; 96367; 96375; 99285-25; J0696; J2270; J3370; J3480; J7030; J7050; Q9967

== ENCOUNTER 2021-04-11 18:48 | Inpatient (IN) | payer OTHER ==
[~2021-04-11] VITALS: Ht 165.1 cm; Wt 76.4 kg
[~2021-04-11 18:48] MED LIST changes: +GABA300 PO
[2021-04-11 20:04] LABS: BASOPHILS ABSOLUTE AUTO 0.03 K/mm3 (0.00-0.23); BASOPHILS PERCENT AUTO 0 % (0-2); EOSINOPHILS ABSOLUTE AUTO 0.01 K/mm3 (0.00-0.68); EOSINOPHILS PERCENT AUTO 0 % (0-6); Hematocrit 35.2 % (33.0-51.0); Hemoglobin 11.6 g/dL (11.5-16.0); IMMATURE GRAN ABSOLUTE AUTO 0.05 K/mm3 (0.00-0.10); IMMATURE GRAN PERCENT AUTO 0 % (0-1); LYMPHOCYTES PERCENT AUTO 10 % (21-46); MONOCYTES ABSOLUTE AUTO 0.78 K/mm3 (0.16-1.47); MONOCYTES PERCENT AUTO 5 % (4-13); Mean Corpuscular HGB 27.4 pg (26.0-34.0); Mean Corpuscular Volume 83 fL (80-100); Mean Platelet Volume 8.7 fL (9.1-12.4); NEUTROPHILS ABSOLUTE AUTO 12.23 K/mm3 (1.96-9.15); NEUTROPHILS PERCENT AUTO 84 % (41-73); Platelet Count 396 K/mm3 (150-400); RDW Coefficient Variation 15.6 % (11.7-14.2); RDW Standard Deviation 47.4 fL (35.1-46.3); Red Blood Cell Count 4.24 M/mm3 (3.80-5.20)
[2021-04-11 20:25] LABS: Alanine Aminotransfer (ALT/SGP 21 U/L (12-78); Albumin, Blood 3.1 g/dL (3.4-5.0); Albumin/Globulin Ratio 0.7 (0.8-1.8); Alk Phos 120 U/L (50-136); Anion Gap 8 mmol/L (6-16); Aspartate Aminotrans (AST/SGOT 10 U/L (12-37); Bilirubin, Total 0.6 mg/dL (0.1-1.0); Blood Urea Nitrogen 8 mg/dL (8-24); Bun/Creatinine Ratio 14.6 (12.0-20.0); CO2, Blood 25 mmol/L (21-32); Calcium, Blood 9.2 mg/dL (8.5-10.1); Chloride, Blood 104 mmol/L (98-108); Creatinine, Blood 0.55 mg/dL (0.40-1.00); Ethanol (Alcohol), Blood, Med <3 mg/dL; Globulin, Blood 4.6 g/dL (2.2-4.0); Glomerular Filtration Rate >60 (60-); Glucose, Blood 119 mg/dL (70-99); Potassium, Blood 3.8 mmol/L (3.5-5.5); Sodium, Blood 137 mmol/L (136-145); Total Protein, Blood 7.7 g/dL (6.4-8.2)
[2021-04-11 22:52] LABS: Source, Urine Clean Catch
[2021-04-11 23:01] LABS: Bilirubin, Urine Neg (Neg); Blood, Urine 1+ (Neg); Glucose Qualitative, Urine Neg (Neg); Ketones, Urine 1+ (Neg); Leukocyte Esterase, Urine Neg (Neg); Nitrite, Urine Neg (Neg); Protein, Urine Neg (Neg); Specific Gravity, Urine 1.005 (1.003-1.022); Urobilinogen, Urine NORM (Normal)
[2021-04-11 23:02] LABS: Appearance, Urine Clear (Clear); Color, Urine Yellow (P-Yellow)
[2021-04-11 23:11] LABS: U Amphetamine Screen DETECTED; U Barbituate Screen Not Detected; U Benzodiazapine Screen Not Detected; U Buprenorphine Screen Not Detected; U Cannabinoids Screen DETECTED; U Cocaine Screen Not Detected; U Methadone Screen Not Detected; U Methamphetamine Screen DETECTED; U Opiates Screen Not Detected; U Oxycodone Screen Not Detected; U Phencyclidine Screen Not Detected; U Propoxyphene Screen Not Detected
[2021-04-11 23:14] LABS: Bacteria Rare /hpf; Red Blood Cells, Urine 0-2 /hpf (0-2); Squamous Epithelial Cells Few /hpf (Few); White Blood Cells, Urine Not Seen /hpf (0-5)
[2021-04-11 23:53] LABS: Influenza A, PCR NEGATIVE (NEGATIVE); Influenza B, PCR NEGATIVE (NEGATIVE); Resp Syncytial Virus, PCR NEGATIVE (NEGATIVE); SARS-Cov-2 (COVID-19) PCR, MMC NEGATIVE (NEGATIVE)
[2021-04-12 05:16] LABS: BASOPHILS ABSOLUTE AUTO 0.01 K/mm3 (0.00-0.23); BASOPHILS PERCENT AUTO 0 % (0-2); EOSINOPHILS ABSOLUTE AUTO 0.05 K/mm3 (0.00-0.68); EOSINOPHILS PERCENT AUTO 1 % (0-6); Hemoglobin 10.8 g/dL (11.5-16.0); IMMATURE GRAN ABSOLUTE AUTO 0.02 K/mm3 (0.00-0.10); IMMATURE GRAN PERCENT AUTO 0 % (0-1); LYMPHOCYTES ABSOLUTE AUTO 1.64 K/mm3 (0.84-5.20); LYMPHOCYTES PERCENT AUTO 17 % (21-46); MONOCYTES ABSOLUTE AUTO 0.83 K/mm3 (0.16-1.47); MONOCYTES PERCENT AUTO 8 % (4-13); Mean Corpuscular HGB 27.7 pg (26.0-34.0); Mean Corpuscular HGB Conc 32.7 g/dL (31.5-36.5); Mean Corpuscular Volume 85 fL (80-100); Mean Platelet Volume 8.6 fL (9.1-12.4); NEUTROPHILS PERCENT AUTO 74 % (41-73); Platelet Count 321 K/mm3 (150-400); RDW Coefficient Variation 15.9 % (11.7-14.2); RDW Standard Deviation 49.2 fL (35.1-46.3); White Blood Cell Count 9.95 K/mm3 (4.00-11.30)
[2021-04-12 06:03] LABS: Alanine Aminotransfer (ALT/SGP 23 U/L (12-78); Albumin, Blood 2.4 g/dL (3.4-5.0); Albumin/Globulin Ratio 0.6 (0.8-1.8); Alk Phos 103 U/L (50-136); Anion Gap 6 mmol/L (6-16); Aspartate Aminotrans (AST/SGOT 13 U/L (12-37); Bilirubin, Total 0.6 mg/dL (0.1-1.0); Blood Urea Nitrogen 9 mg/dL (8-24); Bun/Creatinine Ratio 18.1 (12.0-20.0); CO2, Blood 24 mmol/L (21-32); Calcium, Blood 8.6 mg/dL (8.5-10.1); Chloride, Blood 109 mmol/L (98-108); Globulin, Blood 4.3 g/dL (2.2-4.0); Glomerular Filtration Rate >60 (60-); Glucose, Blood 108 mg/dL (70-99); Potassium, Blood 3.6 mmol/L (3.5-5.5); Sodium, Blood 139 mmol/L (136-145); Total Protein, Blood 6.7 g/dL (6.4-8.2)
--- NOTE | 2021-04-12 15:14 | NUR ---
ADMIT PT ADMITTED AT 14OO. PT ORIENTED TO ROOM. CALL LIGHT IN REACH. WATER & SNACKS PROVIDED.
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
[2021-04-13 05:43] LABS: Vancomycin, Trough 13.5 ug/mL (5.0-10.0)
--- NOTE | 2021-04-13 07:03 | NUR ---
SHIFT SUMMARY PT AOX3 AND WAS ASLEEP AT THE START OF THIS SHIFT. PT BP WAS VERY LOW AND NEW ORDERS PER CHART. PT MEDICATED PER EMAR THIS SHIFT, RESTED WELL WITH NO S/S OF DISTRESS. PT WAS IN PAIN BUT ABLE TO REST MOST OF THIS SHIFT, REPORT GIVEN.
[2021-04-13 09:00] LABS: International Normalized Ratio 1.08; Prothrombin Time Results 11.3 Sec (9.7-11.5)
--- NOTE | 2021-04-13 10:34 | NUR ---
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 DR. ROWLEY NOTIFIES. 1MG OF ATIVAN ORDERED FOR MRI.
--- NOTE | 2021-04-13 13:59 | NUR ---
REFUSAL FOR CT GUIDED BIOPSY PT REFUSING CT GUIDED BIOPSY STATING SHE WILL NOT BE POKED WITH ANOTHER NEEDLE. PT STATES "NO ONE TOLD ME ABOUT THIS". HOWEVER, THIS RN WAS PRESENT WHEN DR. ROWLEY TALKED TO HER ABOUT IT THIS AM. PT STATES "I WILL NOT RISK WALKING FOR THIS". PT HELPED BACK INTO BED AND TRANSPORT LEFT. DR. ROWLEY NOTIFIED OF REFUSAL.
--- NOTE | 2021-04-13 16:15 | NUR ---
RUN OF VTACH 8 BEAT RUN OF VTACH PER DUMPER MOLD CLEANERAIDAN. RATE IN THE 180S AT THAT TIME. PT NOW BACK IN NSR AT 89. DR. ROWLEY NOTIFIED. NO NEW ORDERS.
--- NOTE | 2021-04-13 18:25 | NUR ---
SHIFT SUMMARY PT HAD MRI COMPLETED TODAY. REFUSED CT BIOPSY EARLIER IN SHIFT. AFTER SPEAKING WITH DR. ROWLEY, PT IS AGREEABLE TO HAVE THE PROCEDURE TOMORROW. VS REVIEWED AND BP HAS BEEN STABLE TODAY. NO OTHER ACUTE CHANGES IN ASSESSMENT AT THIS TIME. PT RESTING IN BED. CALL LIGHT IN REACH. SEE EMAR FOR PAIN NEON SIGN MECHANIC.
--- NOTE | 2021-04-13 21:51 | NUR ---
PT C/O VANCO SLIGHTLY BURNING WHILE RUNNING, THIS NURSE STOPPED THE FLUIDS AND ASSESSED THE SITE. ONCE FLUSHED THE PT WAS ABLE TO TOLERATE THE REMAINDER OF THE VANCO. NEW IV SITE TO BE PLACED THIS SHIFT TO PREVENT INFILTRATION, WILL D/C AND MONITOR SITE.
[2021-04-14 05:12] LABS: Vancomycin, Trough 15.8 ug/mL (5.0-10.0)
--- NOTE | 2021-04-14 18:07 | NUR ---
SHIFT SUMMARY PT AWAKE AT START OF SHIFT. UP INDEPENDENTLY TO BTHRM AND AROUND RM. CALLED FOR PAIN MEDICATION; GIVEN PER EMAR. IMAGING CALLED TO REPORT TIME NEEDED FOR PT NOTIFICATION OF CT. PT THEN STATED THAT SHE WAS GOING TO REFUSE. "I DON'T SEE WHY I NEED IT AND IF I DO, I WILL GO TO [facility]". CT IMAGING NOTIFIED OF PT'S REFUSAL AND TO TAKE THEM OFF THE SCHEDULE. DR ROWLEY CALLED ABOUT TIME OF CT; UPDATE GIVEN. DR ROWLEY TO D/C PT, BUT LATER CAME TO TALK WITH PT AGAIN. PT DECIDED TO STAY ONE MORE DAY AND D/C TOMORROW. DR RAMIREZ TO BE HERE TOMORROW AND MAKE RECOMMENDATION FOR ABX TX. PT IS A&O, AND ABLE TO MAKE NEEDS KNOWN. CALLS FOR PAIN MEDICATIONS AND SNACKS. IV ABX GIVEN PER EMAR THRU OUT THE DAY. CALL LT IN REACH.
[2021-04-14] MEDS ORDERED: Methocarbamol750 MG PO (19:15)
--- NOTE | 2021-04-14 23:36 | NUR ---
PT HIT HAND ON BED AND IV SITE REDNESS, TENDER AND WILL NOT FLUSH. PT C/O VANCO BURNING WHILE RUNNING AND AFTER ONE ATTEMPT BY CHARGE NURSE PT WAS YELLING, "JUST STOP AND GET OUT, YOU DON'T KNOW WHAT YOU'RE DOING!" THIS NURSE WILL NOTIFY ONCALL TO SEE IF NEW ORDERS ARE NEEDED.
--- NOTE | 2021-04-15 05:19 | NUR ---
SHIFT SUMMARY PT AOX3 BUT WAS ASLEEP AT THE START OF THIS SHIFT. PT C/O BACK AND THAT PO MEDS WERE NOT EFFECTIVE. THIS NURSE ASSESSED INCREASED BP PRIOR TO GIVING PRN FOR PAIN PER EMAR. PT HIT HAND OF THE BED AGAIN THIS SHIFT NO INJURY BUT IV SITE WAS RED AND NOT FLUSHING WELL. CHARGE NURSE ATTEMPTED TO START NEW IV AND PT BECAME UPSET STATED IN PREVIOUS NOTE. SUPERVISOR MONEY ROOM GAVE ONE TIME DOSE OF ABX PER EMAR PO UNTIL PCP CAN BE CONTACTED BY THIS NURSE. PT RESTING WITH RISE AND FALL OF CHEST NO S/S OF DISTRESS, WILL CONTINUE TO MONITOR UNTIL REPORT IS GIVEN.
[2021-04-15] MEDS ORDERED: RIFA300 PO (13:33)
[2021-04-15] MEDS ORDERED: ROXICODONE5 MG PO (13:33)
[2021-04-15] MEDS ORDERED: SULTRIDS PO (13:34)
[2021-04-15] MEDS ORDERED: Vitamin D1000 UNI1 PO (13:46)
[2021-04-15] MEDS ORDERED: Vitamin B Comple1 EA PO (13:49)
[2021-04-15] MEDS ORDERED: PYRI100 PO (14:12)
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
--- NOTE | 2021-04-15 15:54 | NUR ---
DISCHARGE SUMMARY PATIENT DISCHARGED HOME. DISCHARGE PAPERWORK REVIEWED WITH PATIENT AND ALL QUESTIONS ANSWERED. PHARMACY REVIEWED MEDICATIONS WITH PATIENT AND ANSWERED ALL QUESTIONS IN REGARDS TO HER MEDICATIONS. PRESCRIPTIONS FAXED TO PATIENTS REQUESTED PHARMACY AND HARD SCRIPT GIVEN TO PATIENT. PATIENT AND ALL BELONGINGS TAKEN DOWN TO [facility] VIA WHEELCHAIR.
== END 2021-04-15 14:56 | disposition home or self-care (01) | DRG 541 ==
LOC: ER 18:48 → ERHOLD 23:32 → MEDS 23:32
PROVIDERS: Internal Medicine; Pharmacist; Student in an Organized Health Care Education/Training Program; ADMIT Internal Medicine
DX: M46.24 Osteomyelitis of vertebra, thoracic region (principal); M46.34 Infection of intervertebral disc (pyogenic), thoracic region; Z20.822 Contact with and (suspected) exposure to COVID-19; R52 Pain, unspecified; J45.909 Unspecified asthma, uncomplicated; F15.10 Other stimulant abuse, uncomplicated; F25.9 Schizoaffective disorder, unspecified; F17.210 Nicotine dependence, cigarettes, uncomplicated; Z88.6 Allergy status to analgesic agent; Z91.14 Patient's other noncompliance with medication regimen; Z28.21 Immunization not carried out because of patient refusal; Z88.8 Allergy status to other drugs, medicaments and biological substances; Z79.899 Other long term (current) drug therapy; Z59.00 Homelessness unspecified; Z98.890 Other specified postprocedural states; Z98.51 Tubal ligation status; Z87.442 Personal history of urinary calculi; Z86.19 Personal history of other infectious and parasitic diseases
CPT/HCPCS: 0241U; 36415; 71260; 72146; 74177; 80053; 80202; 81001; 82565; 83605; 83690; 85025; 85610; 85651; 85730; 86140; 87040; 96365-59; 96366; 96367-59; 96375-59; 99285-25; A9270; G0480; J0692; J1650; J1885; J2060; J3010; J3370; J7030; J7050; Q9967

== ENCOUNTER 2022-08-31 22:30 | Emergency (ER) | payer OTHER ==
[~2022-08-31] VITALS: Ht 165.1 cm; Wt 81.7 kg
[~2022-08-31 22:30] MED LIST changes: +Methocarbamol750 MG PO; +PYRI100 PO; +RIFA300 PO; +SULTRIDS PO; +Vitamin B Comple1 EA PO; +Vitamin D1000 UNI1 PO
[2022-09-01] MEDS ORDERED: AMOCLA875 PO (00:08)
[2022-09-01 00:25] VITALS: BP 112/67
== END 2022-09-01 00:28 | disposition home or self-care (01) ==
LOC: ER 22:30
DX: S51.851A Open bite of right forearm, initial encounter (principal); S31.159A Open bite of abdominal wall, unspecified quadrant without penetration into peritoneal cavity, initial encounter; S71.151A Open bite, right thigh, initial encounter; W54.0XXA Bitten by dog, initial encounter; Z88.8 Allergy status to other drugs, medicaments and biological substances; Z79.899 Other long term (current) drug therapy; J45.909 Unspecified asthma, uncomplicated; F17.210 Nicotine dependence, cigarettes, uncomplicated
CPT/HCPCS: 73090; A9270

== ENCOUNTER 2022-09-11 11:21 | Emergency (ER) | payer OTHER ==
[~2022-09-11] VITALS: Ht 162.6 cm; Wt 83.9 kg
[~2022-09-11 11:21] MED LIST changes: +AMOCLA875 PO
[2022-09-11] MEDS ORDERED: MELO7.5 PO ×2 (14:59→15:12)
[2022-09-11] MEDS ORDERED: GABA300 PO ×2 (14:59→15:12)
[2022-09-11] MEDS ORDERED: Robaxin750 MG PO ×2 (14:59→15:12)
[2022-09-11 15:04] VITALS: BP 124/74
== END 2022-09-11 15:15 | disposition home or self-care (01) ==
LOC: ER 11:21
DX: S30.0XXA Contusion of lower back and pelvis, initial encounter (principal); S70.01XA Contusion of right hip, initial encounter; M54.41 Lumbago with sciatica, right side; F17.210 Nicotine dependence, cigarettes, uncomplicated; Z87.442 Personal history of urinary calculi; Z88.8 Allergy status to other drugs, medicaments and biological substances; W01.198A Fall on same level from slipping, tripping and stumbling with subsequent striking against other object, initial encounter; Y92.002 Bathroom of unspecified non-institutional (private) residence as the place of occurrence of the external cause
CPT/HCPCS: 73502; A9270; J1885

== ENCOUNTER 2022-12-31 22:20 | Inpatient (IN) | payer OTHER ==
[~2022-12-31] VITALS: Ht 165.1 cm; Wt 87.8 kg
[~2022-12-31 22:20] MED LIST changes: +Robaxin750 MG PO
[2022-12-31 23:21] LABS: Albumin, Blood 4.3 g/dL (3.4-5.0); Albumin/Globulin Ratio 1.1 (0.8-1.8); Bilirubin, Total 0.4 mg/dL (0.1-1.0); Bun/Creatinine Ratio 22.2 (12.0-20.0); Creatinine, Blood 0.63 mg/dL (0.40-1.00); Globulin, Blood 3.8 g/dL (2.2-4.0); Potassium, Blood 4.1 mmol/L (3.5-5.5); Total Protein, Blood 8.1 g/dL (6.4-8.2)
[2022-12-31 23:25] LABS: BASOPHILS ABSOLUTE AUTO 0.03 K/mm3 (0.00-0.23); BASOPHILS PERCENT AUTO 0 % (0-2); EOSINOPHILS ABSOLUTE AUTO 0.01 K/mm3 (0.00-0.68); EOSINOPHILS PERCENT AUTO 0 % (0-6); Hematocrit 42.3 % (33.0-51.0); Hemoglobin 14.1 g/dL (11.5-16.0); IMMATURE GRAN ABSOLUTE AUTO 0.05 K/mm3 (0.00-0.10); IMMATURE GRAN PERCENT AUTO 0 % (0-1); LYMPHOCYTES ABSOLUTE AUTO 1.73 K/mm3 (0.84-5.20); LYMPHOCYTES PERCENT AUTO 11 % (21-46); MONOCYTES ABSOLUTE AUTO 0.66 K/mm3 (0.16-1.47); MONOCYTES PERCENT AUTO 4 % (4-13); Mean Corpuscular HGB Conc 33.3 g/dL (31.5-36.5); Mean Corpuscular Volume 90 fL (80-100); Mean Platelet Volume 9.5 fL (9.1-12.4); NEUTROPHILS ABSOLUTE AUTO 13.34 K/mm3 (1.96-9.15); NEUTROPHILS PERCENT AUTO 84 % (41-73); Platelet Count 303 K/mm3 (150-400); RDW Coefficient Variation 13.3 % (11.7-14.2); RDW Standard Deviation 43.9 fL (35.1-46.3); White Blood Cell Count 15.82 K/mm3 (4.00-11.30)
[2022-12-31 23:45] LABS: Ethanol (Alcohol), Blood, Med <3 mg/dL
[2022-12-31 23:59] LABS: Source, Urine Straight Cath
[2023-01-01] VITALS (36 sets, daily range): BP systolic 97–142; BP diastolic 58–109
[2023-01-01 00:10] LABS: Bilirubin, Urine Neg (Neg); Blood, Urine 3+ (Neg); Glucose Qualitative, Urine Neg (Neg); Ketones, Urine 1+ (Neg); Leukocyte Esterase, Urine Neg (Neg); Nitrite, Urine Neg (Neg); Protein, Urine Neg (Neg); Urobilinogen, Urine NORM (Normal)
[2023-01-01 00:26] LABS: Appearance, Urine Clear (Clear); Color, Urine Yellow (P-Yellow); Squamous Epithelial Cells Few /hpf (Few); White Blood Cells, Urine Not Seen /hpf (0-5)
[2023-01-01 00:27] LABS: Amorphous Light (0-Heavy); Bacteria Few /hpf; Mucus Mod (0-Heavy)
[2023-01-01 00:40] LABS: U Amphetamine Screen Not Detected; U Barbituate Screen Not Detected; U Benzodiazapine Screen Not Detected; U Buprenorphine Screen Not Detected; U Cannabinoids Screen Not Detected; U Cocaine Screen Not Detected; U Methadone Screen Not Detected; U Methamphetamine Screen Not Detected; U Opiates Screen Not Detected; U Oxycodone Screen Not Detected; U Phencyclidine Screen Not Detected; U Propoxyphene Screen Not Detected
[2023-01-01 01:26] LABS: Lactate Dehydrogenase (Ld),Bld 250 U/L (100-240)
[2023-01-01 02:46] LABS: Influenza A, PCR NEGATIVE (NEGATIVE); Influenza B, PCR NEGATIVE (NEGATIVE); Resp Syncytial Virus, PCR NEGATIVE (NEGATIVE); SARS-Cov-2 (COVID-19) PCR, MMC NEGATIVE (NEGATIVE)
--- NOTE | 2023-01-01 06:00 | NUR ---
ASSUMPTION OF CARE: RECEIVED REPORT FROM ER NURSE ALIA. PT ARRIVED TO ICU 11 VIA GURNEY. TRANSFERRED OVER WITH SLIDER SHEET. PT THRASHING AROUND IN THE BED AND NOT FOLLOWING COMMANDS. FREQUENT EPISODES OF YELLING OUT. INCONSOLABLE BEHAVIORS. NOT ABLE TO ANSWER QUESTIONS. LUNG SOUNDS CLEAR, ON RA WITH SATS MAINTAINING >95%. SBP 100'S, HR 100'S. ATTENDS IN PLACE, NO URINE OUTPUT SINCE ARRIVAL TO ICU. PIV IN RIGHT HAND, RIGHT AC AND LEFT TOE. INFUSING MEDICATIONS TO RIGHT AC AND RIGHT HAND. LEFT TOE IV SALINE LOCKED. PT PLACED IN BILATERAL UPPER AND LOWER EXTREMETY SOFT RESTRAINTS FOR SAFETY AND DECREASED MENTATION. ARMS AND LEGS FLAILING AROUND IN THE BED. SITTER AT THE DOOR.
[2023-01-01 06:23] LABS: BASOPHILS ABSOLUTE AUTO 0.01 K/mm3 (0.00-0.23); BASOPHILS PERCENT AUTO 0 % (0-2); EOSINOPHILS PERCENT AUTO 0 % (0-6); Hematocrit 35.9 % (33.0-51.0); IMMATURE GRAN ABSOLUTE AUTO 0.04 K/mm3 (0.00-0.10); IMMATURE GRAN PERCENT AUTO 0 % (0-1); LYMPHOCYTES ABSOLUTE AUTO 1.51 K/mm3 (0.84-5.20); LYMPHOCYTES PERCENT AUTO 13 % (21-46); MONOCYTES ABSOLUTE AUTO 0.74 K/mm3 (0.16-1.47); MONOCYTES PERCENT AUTO 6 % (4-13); Mean Corpuscular HGB 29.6 pg (26.0-34.0); Mean Corpuscular HGB Conc 33.4 g/dL (31.5-36.5); Mean Corpuscular Volume 89 fL (80-100); Mean Platelet Volume 9.4 fL (9.1-12.4); NEUTROPHILS PERCENT AUTO 81 % (41-73); Platelet Count 257 K/mm3 (150-400); RDW Coefficient Variation 13.4 % (11.7-14.2); RDW Standard Deviation 43.8 fL (35.1-46.3); Red Blood Cell Count 4.05 M/mm3 (3.80-5.20)
[2023-01-01 06:45] LABS: Albumin, Blood 3.2 g/dL (3.4-5.0); Albumin/Globulin Ratio 1.1 (0.8-1.8); Bilirubin, Total 0.3 mg/dL (0.1-1.0); Calcium, Blood 7.4 mg/dL (8.5-10.1); Creatinine, Blood 0.56 mg/dL (0.40-1.00); Magnesium, Blood 1.8 mg/dL (1.6-2.4); Potassium, Blood 3.6 mmol/L (3.5-5.5); Total Protein, Blood 6.2 g/dL (6.4-8.2)
--- NOTE | 2023-01-01 07:15 | NUR ---
CARE ASSUMPTION DURING BEDSIDE SHIFT REPORT Gabby BROWN RN THE PT IS LYING IN BED APPEARING COMFORTABLE IN 4 POINT RESTRAINTS ON RM AIR. PT'S MONITOR SHOWING ST 103. BP WNL AND STABLE. DURING THIS RN'S ASSESSMENT THE PT AWOKE TO TOUCH AND BEGAN THRASHING IN BED YELLING FOR HELP. MULTIPLE ATTEMPTS TO REORIENT THE PT WERE UNSUCCESSFUL SHE THRASHED IN BED BEFORE QUICKLY FALLING BACK ASLEEP. PT IS AFEBRILE W CLEAR LS. LR RUNNING AT 100ML/HR.
--- NOTE | 2023-01-01 14:29 | NUR ---
UPDATE PT AWAKE AND TALKING APPROPRIATELY W STAFF. WHEN PT ASKED ABOUT THE EVENTS THAT LED TO THE PT'S HOSPITALIZATION SHE REPORTS THAT SHE REMEMBERS GETTING IN AN ARGUMENT WITH HER DAUGHTER AND TAKING A BOTTLE OF PILLS THAT SHE FOUND IN AN ATTEMPT TO END HER LIFE. PT STATES SHE BELIEVES THE PILLS WERE "CLONAZEPAM" BUT STATES SHE HAD "FOUND THEM". PROVIDER UPDATED AND PT PLACED ON HIGH SI RISK PRECAUTIONS.
--- NOTE | 2023-01-01 17:42 | NUR ---
SHIFT SUMMARY REPORT FROM MARINA RAO AT 1500. PT APPEARS TO BE SLEEPING IN BED. WAKES c VERBAL STIMULI. A&OX 2. FOLLOWS SIMPLE COMMANDS. REPORTS SI ATTEMPT, STATES SHE HAS NO IDEATION AT THIS TIME. 1:1 SITTER. PLAN FOR PSYCH EVAL TOMORROW PER SHIMA YARDER ENGINEER. COOPERATIVE. RETURNS TO SLEEP WHEN UNDISTURBED. LUNGS CLEAR. VSS. PCU STATUS. WILL CONTINUE TO MONITOR UNTIL REPORT TO ONCOMING NURSE.
--- NOTE | 2023-01-01 22:22 | NUR ---
PATIENT SLEEPING OFF AND ON. AT 1999 UP TO [facility] WITH MIN ASSIST, THEN ABLE TO FEED SELF DINNER. AFTER EATING PATIENT FALLING BACK TO SLEEP. 1:1 SITTER AT BEDSIDE DUE TO SI INTENTIONS. PATIENT VERBALIZING THAT SHE NO LONGER FEELS LIKE HARMING HERSELF, BUT IS NOT WANTING TO GO BACK TO HER DAUGHTERS HOUSE.
[2023-01-02 03:29] VITALS: BP 118/84
[2023-01-02 03:37] LABS: BASOPHILS ABSOLUTE AUTO 0.01 K/mm3 (0.00-0.23); BASOPHILS PERCENT AUTO 0 % (0-2); EOSINOPHILS ABSOLUTE AUTO 0.01 K/mm3 (0.00-0.68); EOSINOPHILS PERCENT AUTO 0 % (0-6); Hemoglobin 12.1 g/dL (11.5-16.0); IMMATURE GRAN ABSOLUTE AUTO 0.02 K/mm3 (0.00-0.10); IMMATURE GRAN PERCENT AUTO 0 % (0-1); LYMPHOCYTES ABSOLUTE AUTO 1.56 K/mm3 (0.84-5.20); LYMPHOCYTES PERCENT AUTO 18 % (21-46); MONOCYTES ABSOLUTE AUTO 0.69 K/mm3 (0.16-1.47); MONOCYTES PERCENT AUTO 8 % (4-13); Mean Corpuscular HGB 29.9 pg (26.0-34.0); Mean Corpuscular HGB Conc 33.6 g/dL (31.5-36.5); Mean Corpuscular Volume 89 fL (80-100); Mean Platelet Volume 9.6 fL (9.1-12.4); NEUTROPHILS ABSOLUTE AUTO 6.23 K/mm3 (1.96-9.15); NEUTROPHILS PERCENT AUTO 73 % (41-73); Platelet Count 266 K/mm3 (150-400); RDW Coefficient Variation 13.8 % (11.7-14.2); RDW Standard Deviation 44.7 fL (35.1-46.3); Red Blood Cell Count 4.05 M/mm3 (3.80-5.20); White Blood Cell Count 8.52 K/mm3 (4.00-11.30)
[2023-01-02 03:56] LABS: Anion Gap 6 mmol/L (6-16); Blood Urea Nitrogen 11 mg/dL (8-24); Bun/Creatinine Ratio 20.3 (12.0-20.0); CO2, Blood 25 mmol/L (21-32); Calcium, Blood 7.8 mg/dL (8.5-10.1); Chloride, Blood 112 mmol/L (98-108); Creatinine, Blood 0.54 mg/dL (0.40-1.00); Glomerular Filtration Rate 112 (60-); Glucose, Blood 110 mg/dL (70-99); Phosphorus, Blood 2.2 mg/dL (2.5-4.9); Potassium, Blood 3.5 mmol/L (3.5-5.5); Sodium, Blood 143 mmol/L (136-145)
--- NOTE | 2023-01-02 06:17 | NUR ---
SUMMARY PATIENT SLEEPING OFF AND ON T/O NIGHT. 1:1 SITTER AT BEDSIDE FOR SI PRECAUTIONS. PATIENT UP TO BSC SEVERAL TIMES T/O NIGHT, PATIENT GETTING STRONGER AND BETTER COORDINATION NIGHT PROGRESSED. PATIENT ASKING FOR BELONGINGS. EXPLAINED TO PATIENT THAT SHE WILL GET HER BELONGINGS THAT CAME IN WITH HER WHEN SHE IS OFF SUICIDE PRECAUTIONS.
[2023-01-02 08:22] VITALS: BP 108/90
[2023-01-02 08:24] VITALS: BP 108/90
--- NOTE | 2023-01-02 09:00 | NUR ---
ASSUMED CARE / DR SIDDIQUI: REPORT RECEIVED FROM SUSAN Pierre RN. ASSUMED CARE OF THIS PT AT APPROX 0700. ON ASSESSMENT, THE PT IS RESTING QUIETLY & AWAKENS EASILY TO VERBAL STIMULUS. SHE IS A&O TO ALL, COOPERATIVE W/ CARE, SOMEWHAT WITHDRAWN AT TIMES. LS CLEAR T/O, PT ON RA W/ O2 SATS > 92%. OCCASIONAL COUGH THAT SHE STS HAPPENS "SOMETIMES," IS CURRENT EVERY DAY NICOTINE USER & SMOKES A VAPE PEN. MONITOR SHOWS SR-ST W/ HR 80-100s, BP STABLE. PT DENIES GI COMPLAINTS, IS TOLERATING PO INTAKE WELL. VOIDS URINE W/O DIFFICULTY. SBA FOR TXs TO BSC. SKIN CONDITION OVERALL POOR, NUMEROUS AREAS OF SCABBING & BRUISING THAT THE PT OCCASIONALL PICKS AT. SHE REPOSITIONS HERSELF FOR COMFORT WITHOUT DIFFICULTY. SHE DENIES ANY CURRENT SI, 1:[address] SIDDIQUI AT BEDSIDE THIS AM TO EVAL PT. SHE STS OKAY TO BE MEDICAL STATUS, NO TELE. LR, ABX & CBG CHECKS DISCONTINUED. PROVIDER PLANS TO DISCHARGE THIS PT TO HOME IF CLEARED BY PSYCHIATRY TODAY. NO OTHER CHANGES AT THIS TIME. WILL CONTINUE TO MONITOR & UPDATE NEEDED.
[2023-01-02] MEDS ORDERED: QUETIAPINE FUMA50 M2 PO (13:40)
--- NOTE | 2023-01-02 17:37 | NUR ---
A PERSON "FROM THE COMMUNITY" WHO WOULD NOT DISCLOSE HER IDENITY OR ORGANIZATION SPOKE WITH PT FOR 1.5HRS, "OFFERING RESOURCE INFORMATION". PT ASKED BY THIS NURSE WHERE SHE WOULD LIKE TO GO WHEN DISCHARGED; SHE TEARED UP STATING, "NO WHERE, THE [place]? IM HOMELESS, I DONT HAVE ANY WHERE TO GO AND THE SHELTERS ARE FULL." DINNER PROVIDED FOR PT AND CALL MADE TO SHIMA WITH EQUIPMENT OPERATION INSTRUCTOR; AWAITING RESPONSE ON POSSIBLE OPENINGS AT [facility].
--- NOTE | 2023-01-02 18:10 | NUR ---
KYRA WITH WOOD CHOPPER AT BEDSIDE. PT STATES SHE IS UNABLE TO STAY WITH HER DAUGHTER IT IS NOTA SAFE SITUATION.DR SIDDIQUI CALLED AND GIVEN UPDATE, OKAY TO KEEP PT OVERNIGHT. STATEMENT CLERKS SUPERVISOR NOTIFIED.
[2023-01-02 18:15] VITALS: BP 109/67
[2023-01-02 20:29] VITALS: BP 106/65
[2023-01-03 04:15] VITALS: BP 99/84
--- NOTE | 2023-01-03 04:22 | NUR ---
SHIFT SUMMARY PATIENT A/Ox4, FLAT, WITHDRAWN. DENIES PAIN NOR DISCOMFORT. ENDORSES FEELING ANXIOUS/FRUSTRATED, RECEIVED PRN ATIVAN, TOLERATED WELL. NO UNSAFE NOR SELF-HARM BEHAVIORS OBSERVED. PATIENT APPEARS TO BE ASLEEP AT THIS TIME IN NO ACUTE DISTRESS. BED LOCKED AND IN LOWEST POSITION, CALL LIGHT WITHIN REACH.
[2023-01-03 07:30] VITALS: BP 125/76
--- NOTE | 2023-01-03 07:38 | NUR ---
note PT ROUNDING. PT DOOR OPEN. LIGHTS OFF AND SHES COVERED, IN CLUDING HER HEAD, UNDER THE BLANKETS. BED LOW LOCKED AND CALL LIGHT ON TABLE. CARE ON GPOING.
--- NOTE | 2023-01-03 15:28 | NUR ---
DISCHARGE PT DISCAHRGED TO [facility] FOR TRANSFER TO [facility]. PT AREEABLE BUT ANXIOUS. NO IV TO REMOVED. RA. TAKEDN OUT BY WHEELCHAIR ACCOMPANIED BY STAFF. CONTINUE POC.
== END 2023-01-03 15:17 | disposition home or self-care (01) | DRG 918 ==
LOC: ER 22:20 → ICUE 01-01 04:00 → MEDS 01-02 22:15
PROVIDERS: Emergency Medicine; Family Medicine; ADMIT Student in an Organized Health Care Education/Training Program
PROC: 00JU3ZZ Inspection of Spinal Canal, Percutaneous Approach (ICD-10-PCS; principal; 2023-01-01)
DX: T42.4X2A Poisoning by benzodiazepines, intentional self-harm, initial encounter (principal); E87.20 Acidosis, unspecified; F25.9 Schizoaffective disorder, unspecified; J45.909 Unspecified asthma, uncomplicated; D72.829 Elevated white blood cell count, unspecified; Z20.822 Contact with and (suspected) exposure to COVID-19; F17.210 Nicotine dependence, cigarettes, uncomplicated; F15.11 Other stimulant abuse, in remission; E83.39 Other disorders of phosphorus metabolism; Z88.8 Allergy status to other drugs, medicaments and biological substances; Z87.442 Personal history of urinary calculi; Z86.19 Personal history of other infectious and parasitic diseases; Z87.39 Personal history of other diseases of the musculoskeletal system and connective tissue; Z98.890 Other specified postprocedural states; Z98.51 Tubal ligation status; Z79.891 Long term (current) use of opiate analgesic; Z79.2 Long term (current) use of antibiotics; Z79.899 Other long term (current) drug therapy; Z88.4 Allergy status to anesthetic agent
CPT/HCPCS: 0241U; 36415; 51701; 62270; 70450; 72040; 80053; 80069; 81001; 82550; 82947; 83605; 83615; 83690; 83735; 84145; 84703; 85025; 87040; 93005; 93010; 96365-59; 96367-59; 96368; 96375-59; 96376-59; 99152; 99291-25; A9270; J0290; J0696; J1100; J1630; J1650; J2060; J2704; J3370; J7030; J7050; J7060; J7120; J8499; P9612